=== PATIENT | male | born 1945 | race Caucasian/White ===

== ENCOUNTER 2017-09-27 11:54 | Inpatient (IN) | payer MEDICARE ==
--- NOTE | 2017-09-27 13:24 | C.PDOC ---
History Of Present Illness 72 y/o male presents to ED for evaluation of worsening open wound to left leg for 4 days with associated swelling and redness. Patient reports foul odor from wound with drainage prompting visit to ED. Patient denies fever, chills, nausea , vomiting or any other complaints at this time. Time Seen by Provider: 09/27/17 12:27 Chief Complaint (Nursing): Abnormal Skin Integrity History Per: Patient History/Exam Limitations: no limitations Onset/Duration Of Symptoms: Days Current Symptoms Are (Timing): Still Present Past Medical History Reviewed: Historical Data, Nursing Documentation, Vital Signs Vital Signs: Last Vital Signs Temp 97.6 F 09/27/17 16:30 Pulse 74 09/27/17 16:30 Resp 20 09/27/17 16:30 BP 133/76 09/27/17 16:30 Pulse Ox 98 09/27/17 17:11 - Medical History PMH: Arthritis, Fractures (left hip), HTN, Hypercholesterolemia Surgical History: No Surg Hx Family History: States: No Known Family Hx - Social History Hx Tobacco Use: No Hx Alcohol Use: Yes Hx Substance Use: No - Immunization History Hx Tetanus Toxoid Vaccination: Yes Hx Influenza Vaccination: Yes Hx Pneumococcal Vaccination: Yes Review Of Systems Except As Marked, All Systems Reviewed And Found Negative. Constitutional: Negative for: Fever, Chills Cardiovascular: Negative for: Chest Pain Respiratory: Negative for: Shortness of Breath Gastrointestinal: Negative for: Nausea, Vomiting Skin: Positive for: Other (oen wound). Negative for: Rash Physical Exam - Physical Exam Appears: Non-toxic, No Acute Distress Skin: Warm, Dry, Other (7x5cm open wound with erythema and purulent discharge. + eschar) Head: Atraumatic, Normacephalic Eye(s): bilateral: Normal Inspection, PERRL, EOMI Oral Mucosa: Moist Neck: Normal ROM, Supple Chest: Symmetrical, No Tenderness Cardiovascular: Rhythm Regular, No Friction Rub, No Murmur Respiratory: Normal Breath Sounds, No Rales, No Rhonchi, No Wheezing Gastrointestinal/Abdominal: Soft, No Tenderness, No Guarding, No Rebound Extremity: Tenderness (to left lower leg), Pedal Edema (bilateral), Capillary Refill (<2 seconds) Pulses: Left Dorsalis Pedis: Normal, Right Dorsalis Pedis: Normal Neurological/Psych: Oriented x3, Normal Speech, Normal Cognition, Normal Motor, Normal Sensation Gait: With Assistance (walker) ED Course And Treatment - Laboratory Results Result Diagrams: 09/27/17 13:39 09/27/17 13:39 O2 Sat by Pulse Oximetry: 98 (RA) Pulse Ox Interpretation: Normal Medical Decision Making Medical Decision Making: Cultures collected. The case was discussed with Dr. Gann who agrees to admit the patient to his service. Zosyn and Vanco ordered. Disposition - Disposition Disposition: HOSPITALIZED Disposition Time: 13:00 Condition: STABLE - Clinical Impression Clinical Impression: Wound infection, Cellulitis - PA / RANGE MECH[employer]IC / Resident Statement MD/DO has reviewed & agrees with the documentation as recorded. - Scribe Statement The provider has reviewed the documentation as recorded by the Arenibshashi Buenrostro All medical record entries made by the Arenibshashi were at my direction and personally dictated by me. I have reviewed the chart and agree that the record accurately reflects my personal performance of the history, physical exam, medical decision making, and the department course for this patient. I have also personally directed, reviewed, and agree with the discharge instructions and disposition.
[2017-09-27 13:51] LABS: BASO # 0.1 K/uL (0.0-0.2); BASO % 0.7 % (0.0-2.0); EOS # 0.1 K/uL (0.0-0.7); EOS % 0.9 % (0.0-4.0); HEMOGLOBIN 12.9 g/dL (12.0-18.0); LYMPH # 1.2 K/uL (1.0-4.3); LYMPH % 15.3 % (20.0-40.0); MEAN CELL VOLUME 88.3 fL (80.0-94.0); MEAN CORPUSCULAR HEMOGLOBIN 30.4 pg (27.0-31.0); MEAN CORPUSCULAR HGB CONC 34.5 g/dL (33.0-37.0); MEAN PLATELET VOLUME 7.8 fL (7.2-11.7); MONO # 0.6 K/uL (0.0-0.8); NEUT # 6.2 K/uL (1.8-7.0); NEUT % 76.1 % (50.0-75.0); RBC 4.25 Mil/uL (4.40-5.90); RED CELL DISTRIBUTION WIDTH 13.2 % (11.5-14.5); WHITE BLOOD COUNT 8.1 K/uL (4.8-10.8)
[2017-09-27 14:16] LABS: ALB/GLOB RATIO 1.1 (1.0-2.1); ALBUMIN 4.4 g/dL (3.5-5.0); ALT/SGPT 17 U/L (21-72); AST/SGOT 32 U/L (17-59); BLOOD UREA NITROGEN 16 mg/dL (9-20); CALCIUM 9.8 mg/dl (8.6-10.4); GFR AFRICAN-AMERICAN > 60; GFR NON-AFRICAN AMERICAN > 60
[2017-09-27] MEDS ORDERED: Piperacillin/Tazobact 3.375 gm 100 ML IV STA (14:25)
[2017-09-27] MEDS ORDERED: Vancomycin 1 GM 1 GM/250 ML BAG IV SCH (14:30)
--- NOTE | 2017-09-27 14:37 | CP.PCM.HP ---
<Mirtha Espinosa - Last Filed: 09/27/17 15:34> History of Present Illness - History of Present Illness History of Present Illness: HPI: 72 year old male with past medical history of cerebral palsy presented to hospital for left calf wound that started 4 days ago. Wound started draining a couple days ago accompanied with foul odor which prompted him to come to ED. Patient has been applying OTC ointment with no relief. Patient denies having any F/C, numbness/tingling in LE B/L, or pain in B/L LE. Patient denies having any recent insect bite or trauma to the area. Patient denies having any CP, SOB , abd pain, N/V/D/c, F/C. PMhx: stated above Sx: LE sx as a kid Social: denies tobacco, occasional ETOH use. Denies drug use Home Meds: MV Present on Admission - Present on Admission Any Indicators Present on Admission: No Review of Systems - Constitutional Constitutional: absent: Chills, Fever - EENT Eyes: absent: Change in Vision, Decreased Night Vision Nose/Mouth/Throat: Sore Throat. absent: Nasal Congestion, Nasal Discharge - Cardiovascular Cardiovascular: absent: Chest Pain, Dyspnea, Dyspnea on Exertion, Edema, Leg Edema, Pedal Edema, Syncope - Respiratory Respiratory: absent: Cough, Dyspnea, Dyspnea on Exertion, Wheezing, Chest Congestion - Gastrointestinal Gastrointestinal: absent: Abdominal Pain, Constipation, Diarrhea, Nausea, Vomiting - Genitourinary Genitourinary: absent: Dysuria, Urinary Frequency - Musculoskeletal Musculoskeletal: absent: Back Pain, Numbness, Tingling - Integumentary Integumentary: Skin Ulcer (left lower leg wound ). absent: Dry Skin, Sores - Neurological Neurological: absent: Dizziness, Focal Weakness, Headaches, Syncope, Tremor, Weakness - Psychiatric Psychiatric: absent: Anxiety, Depression Past Patient History - Infectious Disease Hx of Infectious Diseases: None - Past Social History Smoking Status: Never Smoked Chewing Tobacco Use: No Cigar Use: No Alcohol: None Home Situation {Lives}: Alone - CARDIAC Hx Hypercholesterolemia: Yes Hx Hypertension: Yes - MUSCULOSKELETAL/RHEUMATOLOGICAL Hx Arthritis: Yes Hx Fractures: Yes (left hip) - PSYCHIATRIC Hx Substance Use: No - SURGICAL HISTORY Hx Joint Replacement: Yes (hip sx uses walker) - ANESTHESIA Hx Anesthesia: Yes Hx Anesthesia Reactions: No Hx Malignant Hyperthermia: No Meds Allergies/Adverse Reactions: Allergies Allergy/AdvReac Type Severity Reaction Status Date / Time No Known Allergies Allergy Verified 09/27/17 12:00 Physical Exam - Constitutional Appears: Non-toxic, No Acute Distress - Head Exam Head Exam: ATRAUMATIC, NORMOCEPHALIC - ENT Exam ENT Exam: Mucous Membranes Moist - Respiratory Exam Respiratory Exam: Clear to Auscultation Bilateral, NORMAL BREATHING PATTERN. absent: Rales, Rhonchi - Cardiovascular Exam Cardiovascular Exam: REGULAR RHYTHM, RRR, +S1, +S2 - GI/Abdominal Exam GI & Abdominal Exam: Normal Bowel Sounds, Soft. absent: Distended, Firm, Guarding, Rigid - Extremities Exam Extremities exam: Positive for: normal inspection. Negative for: calf tenderness - Neurological Exam Neurological exam: Alert, Oriented x3 - Psychiatric Exam Psychiatric exam: Normal Affect, Normal Mood - Skin Additional comments: left lower leg calf wound with erythema on the calf. wound is draining serous fluid. Tender to palpation Results - Vital Signs Recent Vital Signs: Last Vital Signs Temp 98.5 F 09/27/17 13:42 Pulse 80 09/27/17 13:42 Resp 16 09/27/17 13:42 BP 110/69 09/27/17 13:42 Pulse Ox 98 09/27/17 13:38 - Labs Result Diagrams: 09/27/17 13:39 09/27/17 13:39 Labs: Laboratory Results - last 24 hr 09/27/17 09/27/17 13:39 13:39 WBC 8.1 RBC 4.25 L Hgb 12.9 Hct 37.5 MCV 88.3 MCH 30.4 MCHC 34.5 RDW 13.2 Plt Count 402 H D MPV 7.8 Neut % (Auto) 76.1 H Lymph % (Auto) 15.3 L [place] % (Auto) 7.0 Eos % (Auto) 0.9 Baso % (Auto) 0.7 Neut # (Auto) 6.2 Lymph # (Auto) 1.2 [place] # (Auto) 0.6 Eos # (Auto) 0.1 Baso # (Auto) 0.1 Sodium 145 Potassium 3.7 Chloride 104 Carbon Dioxide 29 Anion Gap 16 BUN 16 Creatinine 0.9 Est GFR ( Amer) > 60 Est GFR (Non-Af Amer) > 60 Random Glucose 104 Calcium 9.8 Total Bilirubin 0.6 AST 32 ALT 17 L Alkaline Phosphatase 127 H Total Protein 8.4 H Albumin 4.4 Globulin 4.0 H Albumin/Globulin Ratio 1.1 Assessment & Plan - Assessment and Plan (Free Text) Assessment: 72 year old male with past medical history of HTN and HLD is admitted for left calf cellulitis Left leg Cellulitis - Will check wound cultures and blood cultures - Pt started on vanco and cefepime - Tylenol prn for fever - Stable vital signs and normal WBC count on presentation - CT of left LE without contrast ordered - Wound care consult requested - ID, Dr. Willams is consulted - Podiatry, Dr. Hernandes is consulted Prophylaxis - Lovenox - No indication for GI prophylaxis Case will be discussed with attending, Dr. Gann - Date & Time Date: 09/27/17 Time: 14:42 <Pierce Gann - Last Filed: 09/27/17 16:02> Results - Vital Signs Recent Vital Signs: Last Vital Signs Temp 98.5 F 09/27/17 13:42 Pulse 80 09/27/17 13:42 Resp 16 09/27/17 13:42 BP 110/69 09/27/17 13:42 Pulse Ox 98 09/27/17 13:38 - Labs Result Diagrams: 09/27/17 13:39 09/27/17 13:39 Labs: Laboratory Results - last 24 hr 09/27/17 09/27/17 13:39 13:39 WBC 8.1 RBC 4.25 L Hgb 12.9 Hct 37.5 MCV 88.3 MCH 30.4 MCHC 34.5 RDW 13.2 Plt Count 402 H D MPV 7.8 Neut % (Auto) 76.1 H Lymph % (Auto) 15.3 L [place] % (Auto) 7.0 Eos % (Auto) 0.9 Baso % (Auto) 0.7 Neut # (Auto) 6.2 Lymph # (Auto) 1.2 [place] # (Auto) 0.6 Eos # (Auto) 0.1 Baso # (Auto) 0.1 Sodium 145 Potassium 3.7 Chloride 104 Carbon Dioxide 29 Anion Gap 16 BUN 16 Creatinine 0.9 Est GFR ( Amer) > 60 Est GFR (Non-Af Amer) > 60 Random Glucose 104 Calcium 9.8 Total Bilirubin 0.6 AST 32 ALT 17 L Alkaline Phosphatase 127 H Total Protein 8.4 H Albumin 4.4 Globulin 4.0 H Albumin/Globulin Ratio 1.1 Attending/Attestation - Attestation I have personally seen and examined this patient.: Yes I have fully participated in the care of the patient.: Yes I have reviewed all pertinent clinical information: Yes Notes (Text): 09/27/17 16:00 Medical attending: Patient was seen and examined by me. Agree with the above note by the resident. The patient was not in any acute distress when I saw him. The wound area is on the left calf near the ankle. It is a stage 2 wound that is weeping and is circular in area about 5 cm by 4 cm in dimentions. We cleaned the area off with saline as well as benadine and then saline again. It was then covered by 4 x 4s and kerlix wraps. Will need to get imaging of the lower extremity as well as podiatry and wound evaluation Because of the strong odor, very concerned for infection so will start vancomycin and cefepime thank you Pierce Gann
[2017-09-27] MEDS ORDERED: Piperacillin/Tazobact 3.375 GM in Sodium Chloride 100 ML IVPB STA (15:15)
[2017-09-27] MEDS ORDERED: Sodium Chloride 0.9% 1,000 ML ONE (15:29)
[2017-09-27] MEDS: Sodium Chloride 0.9% 1,000 ML IV SCH (15:30)
[2017-09-27] MEDS ORDERED: Vancomycin 1 gm/NS 200 ml 1 GM/200 ML BAG IVPB SCH (15:30)
[2017-09-27] MEDS ORDERED: Vancomycin 1 gm/NS 200 ml 1 GM/200 ML BAG IVPB STA (15:49)
[2017-09-27] MEDS ORDERED: Vancomycin 1 gm/NS 200 ml 1 GM/200 ML BAG IVPB ONE (16:00)
--- NOTE | 2017-09-27 17:10 | CT ---
PROCEDURE: CT of the left lower extremity dated 09/27/2017 COMPARISON: No prior study available for comparison HISTORY: Left lower leg cellulitis, rule out osteomyelitis TECHNIQUE: Contiguous helical/transaxial sections of the left lower extremity performed from just above the knee joint to the proximal margins of the distal phalanges of the foot. . Coronal and sagittal reformats were generated. This CT exam was performed using one or more of the following dose reduction techniques: Automated exposure control, adjustment of the mA and/or kV according to patient size, and/or use of iterative reconstruction technique. . Radiation dose: Total DLP = 610.90 mGy -cm FINDINGS: BONES: Diffuse infiltration changes of the subcutaneous tissues involving the distal 2/3 of the left lower extremity the consistent with this patient's history of a diffuse cellulitis. There also appears to be localized skin thickening from just above the level of the ankle extending distally to the proximal midfoot region. . No definitive drainable fluid collections are identified. . No evidence of subcutaneous emphysema. No obvious cortical destructive changes. Vascular calcifications are present. IMPRESSION: Findings consistent with diffuse cellulitis involving the distal 2/3 of the left lower extremity as above. There is mild skin thickening from just above the level of the ankle joint distally into the proximal midfoot region. No evidence of drainable fluid collections or subcutaneous emphysema. .No obvious cortical destructive changes suggest overt osteomyelitis however the possibility of an early osteomyelitis cannot be excluded. Followup on three-phase bone scan or MRI could be obtained for further evaluation to exclude early osteomyelitis.
--- NOTE | 2017-09-27 17:14 | CP.PCM.CON ---
History of Present Illness - History of Present Illness History of Present Illness: 72 yo male with complex Hx admitted with SSTI Left calf IV rx started empirically cultures taken Review of Systems - Review of Systems All systems: reviewed and no additional remarkable complaints except - Constitutional Constitutional: As Per HPI - EENT Eyes: absent: As Per HPI, Blind Spots, Blurred Vision, Change in Vision, Decreased Night Vision, Diplopia, Discharge, Dry Eye, Exophthalmos, Floaters, Irritation, Itchy Eyes, Loss of Peripheral Vision, Pain, Photophobia, Requires Corrective Lenses, Sees Flashes, Spots in Vision, Tunnel Vision, Other Visual Disturbances, Loss of Vision, Other Ears: absent: As Per HPI, Decreased Hearing, Ear Discharge, Ear Pain, Tinnitus, Abnormal Hearing, Disequilibrium, Dizziness, Other Nose/Mouth/Throat: absent: As Per HPI, Epistaxis, Nasal Congestion, Nasal Discharge, Nasal Obstruction, Nasal Trauma, Nose Pain, Post Nasal Drip, Sinus Pain, Sinus Pressure, Bleeding Gums, Change in Voice, Dental Pain, Dry Mouth, Dysphagia, Halitosis, Hoarsness, Lip Swelling, Mouth Lesions, Mouth Pain, Odynophagia, Sore Throat, Throat Swelling, Tongue Swelling, Facial Pain, Neck Pain, Neck Mass, Other - Cardiovascular Cardiovascular: absent: As Per HPI, Acrocyanosis, Chest Pain, Chest Pain at Rest , Chest Pain with Activity, Claudication, Diaphoresis, Dyspnea, Dyspnea on Exertion, Edema, Irregular Heart Rhythm, Pain Radiating to Arm/Neck/Jaw, Leg Edema, Leg Ulcers, Lightheadedness, Orthopnea, Palpitations, Paroxysmal Nocturnal Dyspnea, Pedal Edema, Radiating Pain, Rapid Heart Rate, Slow Heart Rate, Syncope, Other - Respiratory Respiratory: absent: As Per HPI, Cough, Dyspnea, Hemoptysis, Dyspnea on Exertion , Wheezing, Snoring, Stridor, Pain on Inspiration, Chest Congestion, Excessive Mucous Production, Change in Mucous Color, Pain with Coughing, Other - Gastrointestinal Gastrointestinal: absent: As Per HPI, Abdominal Pain, Belching, Bloating, Change in Bowel Habits, Change in Stool Character, Coffee Ground Emesis, Constipation, Cramping, Diarrhea, Dyspepsia, Dysphagia, Early Satiety, Excessive Flatus, Fecal Incontinence, Heartburn, Hematemesis, Hematochezia, Loose Stools, Melena, Nausea, Odynophagia, Temesmus, Vomiting, Other - Genitourinary Genitourinary: absent: As Per HPI, Change in Urinary Stream, Difficulty Urinating, Dysuria, Flank Pain, Hematuria, Pyuria, Nocturia, Urinary Incontinence, Urinary Frequency, Urinary Hesitance, Urinary Urgency, Voiding Freq/Small Amts, Freq UTI, Hx Renal/Bladder Calculi, Hx /Renal Surgery, Bladder Distension, Other - Reproductive: Male Reproductive:Male: As Per HPI, Prepubesant, Dyspareunia, Genital Lesions, Genital Pruritis, Pelvic Pain, Sexual Dysfunction, Penile Discharge, Genital Odor, Impotence, On ED Medications, Penile Implant, Other - Musculoskeletal Musculoskeletal: As Per HPI - Integumentary Integumentary: As Per HPI - Neurological Neurological: As Per HPI - Psychiatric Psychiatric: absent: As Per HPI, Abnormal Sleep Pattern, Anhedonia, Anxiety, Auditory Hallucinations, Behavioral Changes, Change in Appetite, Change in Libido, Confusion, Depression, Difficulty Concentrating, Hallucinations, Homicidal Ideation, Hopelessness, Irritability, Memory Loss, Mood Swings, Panic Attacks, Paranoia, Suicidal Ideation, Visual Hallucinations, Tactile Hallucinations, Other - Endocrine Endocrine: absent: As Per HPI, Change in Body Appearance, Change in Libido, Cold Intolorance, Deepening of Voice, Excessive Sweating, Fatigue, Flushing, Heat Intolorance, Increase in Ring/Shoe/Hat Size, Palpitations, Polydipsia, Polyphagia, Polyuria, Other - Hematologic/Lymphatic Hematologic: absent: As Per HPI, Easy Bleeding, Easy Bruising, Lymphadenopathy, Other Past Patient History - Infectious Disease Hx of Infectious Diseases: None - Past Social History Smoking Status: Never Smoked Chewing Tobacco Use: No Cigar Use: No Alcohol: None Home Situation {Lives}: Alone - CARDIAC Hx Hypercholesterolemia: Yes Hx Hypertension: Yes - MUSCULOSKELETAL/RHEUMATOLOGICAL Hx Arthritis: Yes Hx Fractures: Yes (left hip) - PSYCHIATRIC Hx Substance Use: No - SURGICAL HISTORY Hx Joint Replacement: Yes (hip sx uses walker) - ANESTHESIA Hx Anesthesia: Yes Hx Anesthesia Reactions: No Hx Malignant Hyperthermia: No Has any member of the family had a problem w/ anesthesia?: No Meds Allergies/Adverse Reactions: Allergies Allergy/AdvReac Type Severity Reaction Status Date / Time No Known Allergies Allergy Verified 09/27/17 12:00 - Medications Medications: Current Medications Acetaminophen (Tylenol 325mg Tab) 650 mg PO Q6 PRN PRN Reason: Fever >100.4 F Sodium Chloride (Sodium Chloride 0.9%) 1,000 mls @ 100 mls/hr IV .Q10H YUSRA Last Admin: 09/27/17 15:30 Dose: 100 mls/hr Cefepime HCl (Maxipime Iv 1 Gm Premix) 1 gm in 50 mls @ 100 mls/hr IVPB Q12H YUSRA PRN Reason: Protocol Vancomycin/Sodium Chloride (Vancomycin 1 Gm/Ns 200 Ml) 1 gm in 200 mls @ 133.333 mls/hr IVPB Q24H YUSRA PRN Reason: Protocol Stop: 10/03/17 16:01 Vancomycin/Sodium Chloride (Vancomycin 1 Gm/Ns 200 Ml) 1 gm in 200 mls @ 133 mls/hr IVPB STAT STA PRN Reason: Protocol Stop: 09/27/17 17:19 Last Admin: 09/27/17 16:12 Dose: Not Given Physical Exam - Constitutional Appears: Non-toxic, Chronically Ill - Head Exam Head Exam: NORMOCEPHALIC - Eye Exam Eye Exam: PERRL - ENT Exam ENT Exam: Mucous Membranes Dry, Normal External Ear Exam - Neck Exam Neck exam: Negative for: Lymphadenopathy - Respiratory Exam Respiratory Exam: Decreased Breath Sounds, Clear to Auscultation Bilateral - Cardiovascular Exam Cardiovascular Exam: REGULAR RHYTHM, +S1, +S2 - GI/Abdominal Exam GI & Abdominal Exam: Diminished Bowel Sounds, Soft. absent: Tenderness - Rectal Exam Rectal Exam: Deferred, NORMAL INSPECTION - Exam Exam: NORMAL INSPECTION - Extremities Exam Extremities exam: Positive for: calf tenderness, pedal edema, tenderness, pedal pulses present - Back Exam Back exam: absent: CVA tenderness (L) - Neurological Exam Neurological exam: Alert, CN II-XII Intact, Oriented x3, Reflexes Normal - Psychiatric Exam Psychiatric exam: Depressed - Skin Skin Exam: Dry Results - Vital Signs Recent Vital Signs: Last Vital Signs Temp 97.6 F 09/27/17 16:30 Pulse 74 09/27/17 16:30 Resp 20 09/27/17 16:30 BP 133/76 09/27/17 16:30 Pulse Ox 99 09/27/17 16:30 - Labs Result Diagrams: 09/27/17 13:39 09/27/17 13:39 Labs: Laboratory Results - last 24 hr 09/27/17 09/27/17 13:39 13:39 WBC 8.1 RBC 4.25 L Hgb 12.9 Hct 37.5 MCV 88.3 MCH 30.4 MCHC 34.5 RDW 13.2 Plt Count 402 H D MPV 7.8 Neut % (Auto) 76.1 H Lymph % (Auto) 15.3 L [place] % (Auto) 7.0 Eos % (Auto) 0.9 Baso % (Auto) 0.7 Neut # (Auto) 6.2 Lymph # (Auto) 1.2 [place] # (Auto) 0.6 Eos # (Auto) 0.1 Baso # (Auto) 0.1 Sodium 145 Potassium 3.7 Chloride 104 Carbon Dioxide 29 Anion Gap 16 BUN 16 Creatinine 0.9 Est GFR ( Amer) > 60 Est GFR (Non-Af Amer) > 60 Random Glucose 104 Calcium 9.8 Total Bilirubin 0.6 AST 32 ALT 17 L Alkaline Phosphatase 127 H Total Protein 8.4 H Albumin 4.4 Globulin 4.0 H Albumin/Globulin Ratio 1.1 Assessment & Plan - Assessment and Plan (Free Text) Assessment: cellulitis left calf/ SSTI wound care, debridement cultures sent IV antibiotics started
[2017-09-27] MEDS: Cefepime IV 1 gm in Dextrose 1 GM/50 ML BAG IVPB SCH (18:10)
--- NOTE | 2017-09-27 22:17 | CP.PCM.CON ---
History of Present Illness - History of Present Illness History of Present Illness: Podiatry Consult Note - Dr. Hernandes 72 year old male seen at bedside for initial evaluation of left lower leg wound. Pt reports this is his initial presentation with a wound in this area. Wound developed 4 days ago accompanied with foul odor which prompted him to seek medical attention. Pt denies and notable inciting event, no bite, scratching, abrasion, or trauma to the area. Pt states he is ambulatory with the aid of a rolling walker. Pt denies and pedal pain a this time. He denies having any F/C, numbness/tingling in LE B/L, CP, SOB, N,V,D. PMH: cerebral palsy Sx: Left leg surgery as a kid All: NKDA Social: Homed. Denies tobacco, occasional ETOH use. Denies drug use Review of Systems - Review of Systems All systems: reviewed and no additional remarkable complaints except - Musculoskeletal Musculoskeletal: Stiffness Past Patient History - Infectious Disease Hx of Infectious Diseases: None - Past Social History Smoking Status: Never Smoked Chewing Tobacco Use: No Cigar Use: No Alcohol: None Home Situation {Lives}: Alone - CARDIAC Hx Hypercholesterolemia: Yes Hx Hypertension: Yes - MUSCULOSKELETAL/RHEUMATOLOGICAL Hx Arthritis: Yes Hx Fractures: Yes (left hip) - PSYCHIATRIC Hx Substance Use: No - SURGICAL HISTORY Hx Joint Replacement: Yes (hip sx uses walker) - ANESTHESIA Hx Anesthesia: Yes Hx Anesthesia Reactions: No Hx Malignant Hyperthermia: No Has any member of the family had a problem w/ anesthesia?: No Meds Allergies/Adverse Reactions: Allergies Allergy/AdvReac Type Severity Reaction Status Date / Time No Known Allergies Allergy Verified 09/27/17 12:00 - Medications Medications: Current Medications Acetaminophen (Tylenol 325mg Tab) 650 mg PO Q6 PRN PRN Reason: Fever >100.4 F Sodium Chloride (Sodium Chloride 0.9%) 1,000 mls @ 100 mls/hr IV .Q10H [facility] Last Admin: 09/27/17 15:30 Dose: 100 mls/hr Cefepime HCl (Maxipime Iv 1 Gm Premix) 1 gm in 50 mls @ 100 mls/hr IVPB Q12H [facility] PRN Reason: Protocol Last Admin: 09/27/17 18:10 Dose: 100 mls/hr Vancomycin/Sodium Chloride (Vancomycin 1 Gm/Ns 200 Ml) 1 gm in 200 mls @ 133.333 mls/hr IVPB Q24H [facility] PRN Reason: Protocol Stop: 10/03/17 16:01 Physical Exam - Constitutional Appears: Well, Non-toxic, No Acute Distress - Extremities Exam Additional comments: Left lower extremity focused. VASC: DP pedal pulse graded 2/4, Pt pulse graded 1/4. Non-pitting edema noted to distal 1/3 of lower leg. +1 pitting edema noted bilaterally extending from foot to level inferior to knee along. Mild localized callor. Capillary refill time to all digits was <3 seconds. NEURO: Protective sensation grossly intact. Negative Babinski bilaterally. DERM: Left posterior leg partial thickness ulceration noted along course of Achilles tendon. Ulcer measures 6.6 x 3 cm with [id number] wound base. No raised margins no undermining not tunnelling noted. No mal-odor noted a tthis time. Darline wound streaking erythema noted extending 3 cm past wound margins. No active purulence or active drainage noted. Nails are elongated, yellowed, and thickened. MUSCK: Pedal muscle strength graded as 5/5 to right side and 4/5 to left side on inversion and eversion resistance. Stiff and limited ankle joint range of motion to dorsiflexion and plantar flexion. Non-fluid movement of bilateral hip extension, and knee extension. No tenderness to palpation noted. - Neurological Exam Neurological exam: Alert, Oriented x3 - Psychiatric Exam Psychiatric exam: Normal Affect, Normal Mood Results - Vital Signs Recent Vital Signs: Last Vital Signs Temp 97.6 F 09/27/17 16:30 Pulse 74 09/27/17 16:30 Resp 20 09/27/17 16:30 BP 133/76 09/27/17 16:30 Pulse Ox 98 09/27/17 18:41 - Labs Result Diagrams: 09/28/17 08:29 09/28/17 08:29 Labs: Laboratory Results - last 24 hr 09/27/17 09/27/17 13:39 13:39 WBC 8.1 RBC 4.25 L Hgb 12.9 Hct 37.5 MCV 88.3 MCH 30.4 MCHC 34.5 RDW 13.2 Plt Count 402 H D MPV 7.8 Neut % (Auto) 76.1 H Lymph % (Auto) 15.3 L [place] % (Auto) 7.0 Eos % (Auto) 0.9 Baso % (Auto) 0.7 Neut # (Auto) 6.2 Lymph # (Auto) 1.2 [place] # (Auto) 0.6 Eos # (Auto) 0.1 Baso # (Auto) 0.1 Sodium 145 Potassium 3.7 Chloride 104 Carbon Dioxide 29 Anion Gap 16 BUN 16 Creatinine 0.9 Est GFR ( Amer) > 60 Est GFR (Non-Af Amer) > 60 Random Glucose 104 Calcium 9.8 Total Bilirubin 0.6 AST 32 ALT 17 L Alkaline Phosphatase 127 H Total Protein 8.4 H Albumin 4.4 Globulin 4.0 H Albumin/Globulin Ratio 1.1 Assessment & Plan - Assessment and Plan (Free Text) Assessment: 72 year old male with left posterior leg ulcer and cellulits Plan: Pt seen and evaluated. Discussed in detail with attending, Dr. Hernandes. Chart, labs, and vitals reviewed. Afebrile, absent leukocytosis. Leg wound cultures- pending. Leg CT scan- pending. IV abx per ID recommendations.-> Continue empirical abx coverage. Podiatry Intervention: Local wound care. Cleansed Site with saline. Dressed with betadine wet-to-dry dressing and DSD. -Santyl ordered. Offloading of left leg indicated. Prevlon boot ordered. to be applied. Podiatry will continue to monitor pt while inhouse. - Date & Time Date: 09/28/17 Time: 17:15
[2017-09-28] MEDS: Sodium Chloride 0.9% 1,000 ML IV SCH ×5 (03:15→22:53)
[2017-09-28] MEDS: Cefepime IV 1 gm in Dextrose 1 GM/50 ML BAG IVPB SCH ×2 (05:32→17:55)
--- NOTE | 2017-09-28 07:48 | CP.PCM.PN ---
<Geovanna Hawkins - Last Filed: 09/28/17 10:34> Subjective - Date & Time of Evaluation Date of Evaluation: 09/28/17 Time of Evaluation: 07:00 - Subjective Subjective: Medicine Progress Note: Patient was seen and examined at bedside in the AM. Patient states the pain in his lower extremity feels like a tingling/burning sensation and states his leg feels warm. He states it feels like when you burn yourself on a hot toth. Patient states he has been walking with the walker. Patient denies nausea, vomiting, fever or chills. Objective - Vital Signs/Intake and Output Vital Signs (last 24 hours): Temp Pulse Resp BP Pulse Ox 98.5 F 80 20 121/76 96 09/28/17 07:35 09/28/17 07:35 09/28/17 07:35 09/28/17 07:35 09/28/17 07:35 Intake and Output: 09/28/17 09/28/17 06:59 18:59 Intake Total 100 Balance 100 - Medications Medications: Current Medications Acetaminophen (Tylenol 325mg Tab) 650 mg PO Q6 PRN PRN Reason: Fever >100.4 F Collagenase (Santyl) 0 gm TOP DAILY [facility] Enoxaparin Sodium (Lovenox) 30 mg SC DAILY [facility] Sodium Chloride (Sodium Chloride 0.9%) 1,000 mls @ 100 mls/hr IV .Q10H [facility] Last Admin: 09/28/17 05:32 Dose: 100 mls/hr Cefepime HCl (Maxipime Iv 1 Gm Premix) 1 gm in 50 mls @ 100 mls/hr IVPB Q12H [facility] PRN Reason: Protocol Last Admin: 09/28/17 05:32 Dose: 100 mls/hr Vancomycin/Sodium Chloride (Vancomycin 1 Gm/Ns 200 Ml) 1 gm in 200 mls @ 133.333 mls/hr IVPB Q24H [facility] PRN Reason: Protocol Stop: 10/03/17 16:01 - Labs Labs: 09/27/17 13:39 09/27/17 13:39 - Constitutional Appears: No Acute Distress - Head Exam Head Exam: ATRAUMATIC, NORMAL INSPECTION - Eye Exam Eye Exam: EOMI, Normal appearance, PERRL Pupil Exam: NORMAL ACCOMODATION - ENT Exam ENT Exam: Mucous Membranes Moist - Respiratory Exam Respiratory Exam: Clear to Ausculation Bilateral, NORMAL BREATHING PATTERN - Cardiovascular Exam Cardiovascular Exam: REGULAR RHYTHM, +S1, +S2 - GI/Abdominal Exam GI & Abdominal Exam: Soft, Normal Bowel Sounds. absent: Tenderness - Extremities Exam Additional comments: Left posterior Lower extremity 2nd stage ulcer - dressing - clean/dry/intact - Neurological Exam Neurological Exam: Alert, Awake, Oriented x3 - Psychiatric Exam Psychiatric exam: Normal Affect, Normal Mood - Skin Skin Exam: Dry, Intact, Warm Assessment and Plan - Assessment and Plan (Free Text) Assessment: 72 year old male with past medical history of HTN and HLD is admitted for left calf cellulitis Left leg Cellulitis - Stable vital signs and normal WBC count on presentation - ID Consult: Dr. Willams --> help appreciated - Podiatry Consult: Dr. Hernandes --> help appreciated - Wound care consult --> help appreciated - f/u wound cultures: rare polymorphonuclear WBCs; rare gram positive cocci - f/u blood cultures - Medications: * Vanco 1gm q24h IV started 09/28/17 * Cefepime 1gm q12h IV started 09/28/17 * Tylenol prn for fever * Toradol 15mg q6 prn for pain - CT of left LE without contrast (09/27/17): Findings consistent with diffuse cellulitis involving the distal 2/3 of the left lower extremity as above. There is mild skin thickening from just above the level of the ankle joint distally into the proximal midfoot region. No evidence of drainable fluid collections or subcutaneous emphysema. .No obvious cortical destructive changes suggest overt osteomyelitis however the possibility of an early osteomyelitis cannot be excluded. Followup on three-phase bone scan or MRI could be obtained for further evaluation to exclude early osteomyelitis. Prophylaxis - Lovenox 30mg SC daily - No indication for GI prophylaxis - SCDs contraindication Case discussed with Dr. Sanjuanita Hawkins PGY-1 <Pierce Gann - Last Filed: 09/28/17 14:51> Objective - Vital Signs/Intake and Output Vital Signs (last 24 hours): Temp Pulse Resp BP Pulse Ox 98.5 F 80 20 121/76 96 09/28/17 07:35 09/28/17 07:35 09/28/17 07:35 09/28/17 07:35 09/28/17 07:35 Intake and Output: 09/28/17 09/28/17 06:59 18:59 Intake Total 100 1000 Balance 100 1000 - Medications Medications: Current Medications Acetaminophen (Tylenol 325mg Tab) 650 mg PO Q6 PRN PRN Reason: Fever >100.4 F Enoxaparin Sodium (Lovenox) 30 mg SC DAILY [facility] Last Admin: 09/28/17 09:47 Dose: 30 mg Sodium Chloride (Sodium Chloride 0.9%) 1,000 mls @ 100 mls/hr IV .Q10H [facility] Last Admin: 09/28/17 11:23 Dose: Not Given Cefepime HCl (Maxipime Iv 1 Gm Premix) 1 gm in 50 mls @ 100 mls/hr IVPB Q12H [facility] PRN Reason: Protocol Last Admin: 09/28/17 05:32 Dose: 100 mls/hr Vancomycin/Sodium Chloride (Vancomycin 1 Gm/Ns 200 Ml) 1 gm in 200 mls @ 133.333 mls/hr IVPB Q24H [facility] PRN Reason: Protocol Stop: 10/03/17 16:01 Ketorolac Tromethamine (Toradol) 15 mg IVP Q6 PRN PRN Reason: Pain, moderate (4-7) Last Admin: 09/28/17 10:35 Dose: 15 mg Sodium Hypochlorite (Dakins Solution 0.125%) 1 appl TOP DAILY [facility] - Labs Labs: 09/28/17 08:29 09/28/17 08:29 PT 12.9 SECONDS (9.7-12.2) H 09/28/17 14:01 INR 1.2 09/28/17 14:01 APTT 36 SECONDS (21-34) H 09/28/17 14:01 Attending/Attestation - Attestation I have personally seen and examined this patient.: Yes I have fully participated in the care of the patient.: Yes I have reviewed all pertinent clinical information, including history, physical exam and plan: Yes Notes (Text): 09/28/17 14:45 Medical attending: Patient was seen and examined by me. Agree with the above note by the resident The patient was not in any acute distress when we saw him. His dressing over the lower left foot and ankle had been changed this morning. The patient reported there was some pain on exam He underwent CT of the lower extremity, he does have cellulitis as well as soft tissue swelling. The report did not suggest osteomylitis. He will be undergoing surgery with podiatry soon thank you Pierce Gann
[2017-09-28 08:43] LABS: BASO # 0.1 K/uL (0.0-0.2); BASO % 0.7 % (0.0-2.0); EOS # 0.2 K/uL (0.0-0.7); EOS % 3.2 % (0.0-4.0); HEMOGLOBIN 11.5 g/dL (12.0-18.0); LYMPH # 1.4 K/uL (1.0-4.3); LYMPH % 20.3 % (20.0-40.0); MEAN CELL VOLUME 87.9 fL (80.0-94.0); MEAN CORPUSCULAR HGB CONC 34.2 g/dL (33.0-37.0); MONO # 0.8 K/uL (0.0-0.8); MONO % 10.8 % (0.0-10.0); NEUT # 4.6 K/uL (1.8-7.0); RBC 3.81 Mil/uL (4.40-5.90); RED CELL DISTRIBUTION WIDTH 13.1 % (11.5-14.5); WHITE BLOOD COUNT 7.1 K/uL (4.8-10.8)
[2017-09-28 09:21] LABS: ALBUMIN 3.3 g/dL (3.5-5.0); ALT/SGPT 18 U/L (21-72); AST/SGOT 20 U/L (17-59); BLOOD UREA NITROGEN 16 mg/dL (9-20); GFR AFRICAN-AMERICAN > 60; GFR NON-AFRICAN AMERICAN > 60
[2017-09-28 09:32] LABS: HEPATITIS B SURFACE AG Negative (NEGATIVE)
[2017-09-28 09:37] LABS: HEPATITIS A IGM NEGATIVE (NEGATIVE)
[2017-09-28 09:39] LABS: HEPATITIS B CORE AB NEGATIVE (NEGATIVE)
[2017-09-28] MEDS: Enoxaparin 30 mg Syringe SC SCH (09:47)
[2017-09-28 09:49] LABS: HEPATITIS C ANTIBODY NEGATIVE (NEGATIVE)
[2017-09-28] MEDS ORDERED: Collagenase 250 Units/gm Ointment(30 gm) TOP SCH ×2 (10:00→11:00)
--- NOTE | 2017-09-28 14:15 | CP.PCM.PN ---
Subjective - Date & Time of Evaluation Date of Evaluation: 09/28/17 Time of Evaluation: 09:50 - Subjective Subjective: Podiatry Progress Note - Dr. Hernandes 72 year old male seen at bedside for left lower leg wound. Pt denies any pedal pain a this time. He denies any acute overnight events. He denies overnight n/v/ f/c/cp/sob/d. Objective - Vital Signs/Intake and Output Vital Signs (last 24 hours): Temp Pulse Resp BP Pulse Ox 98.5 F 80 20 121/76 96 09/28/17 07:35 09/28/17 07:35 09/28/17 07:35 09/28/17 07:35 09/28/17 07:35 Intake and Output: 09/28/17 09/28/17 06:59 18:59 Intake Total 100 1000 Balance 100 1000 - Medications Medications: Current Medications Acetaminophen (Tylenol 325mg Tab) 650 mg PO Q6 PRN PRN Reason: Fever >100.4 F Enoxaparin Sodium (Lovenox) 30 mg SC DAILY [facility] Last Admin: 09/28/17 09:47 Dose: 30 mg Sodium Chloride (Sodium Chloride 0.9%) 1,000 mls @ 100 mls/hr IV .Q10H [facility] Last Admin: 09/28/17 11:23 Dose: Not Given Cefepime HCl (Maxipime Iv 1 Gm Premix) 1 gm in 50 mls @ 100 mls/hr IVPB Q12H [facility] PRN Reason: Protocol Last Admin: 09/28/17 05:32 Dose: 100 mls/hr Vancomycin/Sodium Chloride (Vancomycin 1 Gm/Ns 200 Ml) 1 gm in 200 mls @ 133.333 mls/hr IVPB Q24H [facility] PRN Reason: Protocol Stop: 10/03/17 16:01 Ketorolac Tromethamine (Toradol) 15 mg IVP Q6 PRN PRN Reason: Pain, moderate (4-7) Last Admin: 09/28/17 10:35 Dose: 15 mg - Labs Labs: 09/28/17 08:29 09/28/17 08:29 - Constitutional Appears: Well, Non-toxic, No Acute Distress - Extremities Exam Additional comments: Left lower extremity focused. VASC: DP pedal pulse graded 2/4, PT pulse graded 1/4. Non-pitting edema noted to distal 1/3 of lower leg. +1 pitting edema noted bilaterally extending from foot to level inferior to knee along. Mild localized callor. Capillary refill time to all digits was <3 seconds. NEURO: Protective sensation grossly intact. Negative Babinski bilaterally. DERM: Left posterior leg partial thickness ulceration noted along course of Achilles tendon. Ulcer measures 6.6 x 3 cm with [id number] wound base. No raised margins no undermining not tunnelling noted. Mal-odor noted a this time. Darline-wound streaking erythema noted extending 3 cm past wound margins. No active purulence or active drainage noted. Nails are elongated, yellowed, and thickened. MUSCK: Pedal muscle strength graded as 5/5 to right side and 4/5 to left side on inversion and eversion resistance. Stiff and limited ankle joint range of motion to dorsiflexion and plantar flexion. Non-fluid movement of bilateral hip extension, and knee extension. No tenderness to palpation noted. - Neurological Exam Neurological Exam: Alert, Awake, Oriented x3 - Psychiatric Exam Psychiatric exam: Normal Affect, Normal Mood Assessment and Plan - Assessment and Plan (Free Text) Assessment: 72 year old male with left posterior leg ulcer and cellulits Plan: Pt seen and evaluated with attending, Dr. Hernandes. Chart, labs, and vitals reviewed. Afebrile, absent leukocytosis. Leg wound cultures- pending. Leg CT scan- positive for cellulits swelling to distal 2/3 of leg, absent noted OM, No noted abscess. IV abx per ID recommendations.-Vanco & Cefepime Podiatry Intervention: Surgical wound debridement indicated. Pt scheduled for debridement tomorrow Monday09/29/17 @ 8am. -Medical clearance requested -Pt placed NPO at midnight. -Anticoagulants held. Continue local wound care. Cleansed Site with saline. Dressed with betadine wet- to-dry dressing and DSD. -Santyl cancelled. Ordered 1/4 strength Dakin's solution. Offloading of left leg indicated. Prevlon boot applied. Podiatry will continue to monitor pt while inhouse.
--- NOTE | 2017-09-28 14:28 | RAD ---
HISTORY: medical clearance COMPARISON: 02/28/2012 FINDINGS: LUNGS: No active pulmonary disease. PLEURA: No significant pleural effusion identified, no pneumothorax apparent. CARDIOVASCULAR: Normal. OSSEOUS STRUCTURES: Current study suggests leftward thoracic convexity. VISUALIZED UPPER ABDOMEN: Normal. OTHER FINDINGS: None. IMPRESSION: No cardiopulmonary active disease.
[2017-09-28 14:29] LABS: INR 1.2; PROTHROMBIN TIME 12.9 SECONDS (9.7-12.2)
[2017-09-28] MEDS: Vancomycin 1 gm/NS 200 ml 1 GM/200 ML BAG IVPB SCH (16:13)
--- NOTE | 2017-09-28 19:10 | CP.PCM.PN ---
Subjective - Date & Time of Evaluation Date of Evaluation: 09/28/17 Time of Evaluation: 10:00 - Subjective Subjective: seen on ronds denies fever + pain LLE Objective - Vital Signs/Intake and Output Vital Signs (last 24 hours): Temp Pulse Resp BP Pulse Ox 97.7 F 66 20 95/58 L 96 09/28/17 16:00 09/28/17 16:00 09/28/17 16:00 09/28/17 16:00 09/28/17 16:00 Intake and Output: 09/28/17 09/29/17 18:59 06:59 Intake Total 1360 Balance 1360 - Medications Medications: Current Medications Acetaminophen (Tylenol 325mg Tab) 650 mg PO Q6 PRN PRN Reason: Fever >100.4 F Last Admin: 09/28/17 16:45 Dose: 650 mg Enoxaparin Sodium (Lovenox) 30 mg SC DAILY [facility] Last Admin: 09/28/17 09:47 Dose: 30 mg Sodium Chloride (Sodium Chloride 0.9%) 1,000 mls @ 100 mls/hr IV .Q10H [facility] Last Admin: 09/28/17 11:23 Dose: Not Given Cefepime HCl (Maxipime Iv 1 Gm Premix) 1 gm in 50 mls @ 100 mls/hr IVPB Q12H [facility] PRN Reason: Protocol Last Admin: 09/28/17 17:55 Dose: 100 mls/hr Vancomycin/Sodium Chloride (Vancomycin 1 Gm/Ns 200 Ml) 1 gm in 200 mls @ 133.333 mls/hr IVPB Q24H [facility] PRN Reason: Protocol Stop: 10/03/17 16:01 Last Admin: 09/28/17 16:13 Dose: 133.333 mls/hr Ketorolac Tromethamine (Toradol) 15 mg IVP Q6 PRN PRN Reason: Pain, moderate (4-7) Last Admin: 09/28/17 10:35 Dose: 15 mg Sodium Hypochlorite (Dakins Solution 0.125%) 1 appl TOP DAILY [facility] - Labs Labs: 09/28/17 08:29 09/28/17 08:29 PT 12.9 SECONDS (9.7-12.2) H 09/28/17 14:01 INR 1.2 09/28/17 14:01 APTT 36 SECONDS (21-34) H 09/28/17 14:01 - Constitutional Appears: Non-toxic, Chronically Ill - Head Exam Head Exam: NORMOCEPHALIC - Eye Exam Eye Exam: PERRL - ENT Exam ENT Exam: Mucous Membranes Dry - Neck Exam Neck Exam: absent: Lymphadenopathy - Respiratory Exam Respiratory Exam: Decreased Breath Sounds - Cardiovascular Exam Cardiovascular Exam: REGULAR RHYTHM - GI/Abdominal Exam GI & Abdominal Exam: Distended - Rectal Exam Rectal Exam: Deferred - Exam Exam: NORMAL INSPECTION - Extremities Exam Extremities Exam: Pedal Edema Additional comments: Left lower extremity focused. VASC: DP pedal pulse graded 2/4, PT pulse graded 1/4. Non-pitting edema noted to distal 1/3 of lower leg. +1 pitting edema noted bilaterally extending from foot to level inferior to knee along. Mild localized callor. Capillary refill time to all digits was <3 seconds. NEURO: Protective sensation grossly intact. Negative Babinski bilaterally. DERM: Left posterior leg partial thickness ulceration noted along course of Achilles tendon. Ulcer measures 6.6 x 3 cm with [id number] wound base. No raised margins no undermining not tunnelling noted. Mal-odor noted a this time. Darline-wound streaking erythema noted extending 3 cm past wound margins. No active purulence or active drainage noted. Nails are elongated, yellowed, and thickened. MUSCK: Pedal muscle strength graded as 5/5 to right side and 4/5 to left side on inversion and eversion resistance. Stiff and limited ankle joint range of motion to dorsiflexion and plantar flexion. Non-fluid movement of bilateral hip extension, and knee extension. No tenderness to palpation noted. - Back Exam Back Exam: absent: CVA tenderness (L), CVA tenderness (R) - Neurological Exam Neurological Exam: Alert, Awake, Oriented x3 - Psychiatric Exam Psychiatric exam: Normal Mood - Skin Skin Exam: Dry Assessment and Plan (1) Cellulitis Status: Acute (2) Wound infection Status: Acute - Assessment and Plan (Free Text) Assessment: for OR / debridement in AM cont IV antibiotics
[2017-09-29] MEDS: Cefepime IV 1 gm in Dextrose 1 GM/50 ML BAG IVPB SCH ×2 (05:17→17:59)
[2017-09-29 07:10] LABS: BASO % 0.6 % (0.0-2.0); EOS # 0.3 K/uL (0.0-0.7); EOS % 5.1 % (0.0-4.0); LYMPH # 1.2 K/uL (1.0-4.3); LYMPH % 18.7 % (20.0-40.0); MEAN CELL VOLUME 88.8 fL (80.0-94.0); MEAN CORPUSCULAR HEMOGLOBIN 29.9 pg (27.0-31.0); MEAN CORPUSCULAR HGB CONC 33.6 g/dL (33.0-37.0); MEAN PLATELET VOLUME 7.5 fL (7.2-11.7); MONO # 0.6 K/uL (0.0-0.8); MONO % 9.4 % (0.0-10.0); NEUT # 4.3 K/uL (1.8-7.0); NEUT % 66.2 % (50.0-75.0); RBC 3.69 Mil/uL (4.40-5.90); WHITE BLOOD COUNT 6.5 K/uL (4.8-10.8)
[2017-09-29 07:17] LABS: INR 1.2; PROTHROMBIN TIME 12.7 SECONDS (9.7-12.2)
[2017-09-29] MEDS ORDERED: Lidocaine 2% MPF (5 ml) Inj ONE (07:35)
[2017-09-29] MEDS ORDERED: Bupivacaine HCl 0.25% PF (30 ml) Inj ONE (07:35)
[2017-09-29 07:41] LABS: ALBUMIN 3.2 g/dL (3.5-5.0); ALT/SGPT 26 U/L (21-72); AST/SGOT 20 U/L (17-59); BLOOD UREA NITROGEN 16 mg/dL (9-20); CALCIUM 8.7 mg/dl (8.6-10.4); GFR AFRICAN-AMERICAN > 60; GFR NON-AFRICAN AMERICAN > 60
[2017-09-29] MEDS ORDERED: Midazolam 2 MG/2 ML VIAL ONE (08:01)
[2017-09-29] MEDS ORDERED: Propofol 10 mg/ml Inj (20 ML) ONE (08:01)
--- NOTE | 2017-09-29 08:59 | PCM.SURG1 ---
Surgeon's Initial Post Op Note - Surgeon's Notes Surgeon: Dr. Dewayne Hernandes, DPM Waste Treatment Operator: Luli Bray, PGY-2 Type of Anesthesia: IV Sedation, Local (20mL 1:1 mixture of 0.25% marciane plaine to 2% lidociane plain) Anesthesia Administered By: Dr. Juan Manuel MD Pre-Operative Diagnosis: Left posterior ankle full thickness ulceration Operative Findings: See Dictation Post-Operative Diagnosis: 1) Left posterior ankle full thickness ulceration. 2 ) Left superficially necrotic tendon Operation Performed: Left posterior ankle ulcer debridement Specimen/Specimens Removed: none Estimated Blood Loss: EBL {In ML}: 5 Blood Products Given: N/A Drains Used: No Drains Post-Op Condition: Good Date of Surgery/Procedure: 09/29/17 Time of Surgery/Procedure: 08:50
--- NOTE | 2017-09-29 09:00 | CP.PCM.PN ---
<Geovanna Hawkins - Last Filed: 09/29/17 10:48> Subjective - Date & Time of Evaluation Date of Evaluation: 09/29/17 Time of Evaluation: 07:00 - Subjective Subjective: Medicine Progress Note: Patient was seen and examined at bedside in the AM. Patient is s/p debridement this morning. Patient denies pain, nausea, vomiting or fever. Patient states he is feeling well. Objective - Vital Signs/Intake and Output Vital Signs (last 24 hours): Temp Pulse Resp BP Pulse Ox 97.9 F 68 20 106/64 96 09/29/17 08:00 09/29/17 08:00 09/29/17 08:00 09/29/17 08:00 09/29/17 08:00 Intake and Output: 09/29/17 09/29/17 06:59 18:59 Intake Total 1200 Balance 1200 - Medications Medications: Current Medications Acetaminophen (Tylenol 325mg Tab) 650 mg PO Q6 PRN PRN Reason: Fever >100.4 F Last Admin: 09/28/17 16:45 Dose: 650 mg Enoxaparin Sodium (Lovenox) 30 mg SC DAILY [facility] Last Admin: 09/28/17 09:47 Dose: 30 mg Sodium Chloride (Sodium Chloride 0.9%) 1,000 mls @ 100 mls/hr IV .Q10H [facility] Last Admin: 09/28/17 22:53 Dose: 100 mls/hr Cefepime HCl (Maxipime Iv 1 Gm Premix) 1 gm in 50 mls @ 100 mls/hr IVPB Q12H [facility] PRN Reason: Protocol Last Admin: 09/29/17 05:17 Dose: 100 mls/hr Vancomycin/Sodium Chloride (Vancomycin 1 Gm/Ns 200 Ml) 1 gm in 200 mls @ 133.333 mls/hr IVPB Q24H [facility] PRN Reason: Protocol Stop: 10/03/17 16:01 Last Admin: 09/28/17 16:13 Dose: 133.333 mls/hr Ketorolac Tromethamine (Toradol) 15 mg IVP Q6 PRN PRN Reason: Pain, moderate (4-7) Last Admin: 09/28/17 10:35 Dose: 15 mg Sodium Hypochlorite (Dakins Solution 0.125%) 1 appl TOP DAILY [facility] Tramadol HCl (Ultram) 25 mg PO TID [facility] Stop: 10/02/17 12:00 - Labs Labs: 09/29/17 07:03 09/29/17 07:03 PT 12.7 SECONDS (9.7-12.2) H 09/29/17 07:03 INR 1.2 09/29/17 07:03 APTT 30 SECONDS (21-34) D 09/29/17 07:03 - Constitutional Appears: No Acute Distress - Head Exam Head Exam: ATRAUMATIC, NORMAL INSPECTION - Eye Exam Eye Exam: EOMI, Normal appearance, PERRL Pupil Exam: NORMAL ACCOMODATION - ENT Exam ENT Exam: Mucous Membranes Moist - Respiratory Exam Respiratory Exam: Clear to Ausculation Bilateral, NORMAL BREATHING PATTERN - Cardiovascular Exam Cardiovascular Exam: REGULAR RHYTHM, +S1, +S2 - GI/Abdominal Exam GI & Abdominal Exam: Soft, Normal Bowel Sounds. absent: Tenderness - Extremities Exam Additional comments: Left posterior Lower extremity 2nd stage ulcer - dressing - clean/dry/intact - Neurological Exam Neurological Exam: Alert, Awake, Oriented x3 - Psychiatric Exam Psychiatric exam: Normal Affect, Normal Mood - Skin Skin Exam: Normal Color Assessment and Plan - Assessment and Plan (Free Text) Assessment: Disposition: Patient stable for discharge pending [facility] approval. Patient to continue Cefepime 1gm q12h and Vancomycin 1gm q24h IV for 7 more days. Left leg Cellulitis - Stable vital signs and normal WBC count on presentation - ID Consult: Dr. Willams --> help appreciated - Podiatry Consult: Dr. Hernandes --> help appreciated - s/p Debriedment 09/28/17 - Patient is medically optimized for surgery; Detsky score of 5 - Class I 6% risk of complications - EKG NSR @ 69bpm - Chest Xray: no cardiopulmonary active disease - Wound care consult --> help appreciated - f/u wound cultures: rare polymorphonuclear WBCs; rare gram positive cocci - blood cultures: no growth --> f/u final report - PICC Line ordered - Medications: * Vanco 1gm q24h IV started 09/28/17 continue for 7 more days * Cefepime 1gm q12h IV started 09/28/17 continue for 7 more days * Tylenol prn for fever * Toradol 15mg q6 prn for pain - CT of left LE without contrast (09/27/17): Findings consistent with diffuse cellulitis involving the distal 2/3 of the left lower extremity as above. There is mild skin thickening from just above the level of the ankle joint distally into the proximal midfoot region. No evidence of drainable fluid collections or subcutaneous emphysema. .No obvious cortical destructive changes suggest overt osteomyelitis however the possibility of an early osteomyelitis cannot be excluded. Followup on three-phase bone scan or MRI could be obtained for further evaluation to exclude early osteomyelitis. Prophylaxis - Lovenox 30mg SC daily - No indication for GI prophylaxis - SCDs contraindication Case discussed with Dr. Sanjuanita Hawkins PGY-1 <Pierce Gann H - Last Filed: 09/29/17 14:39> Objective - Vital Signs/Intake and Output Vital Signs (last 24 hours): Temp Pulse Resp BP Pulse Ox 98.5 F 65 12 112/70 100 09/29/17 10:00 09/29/17 10:00 09/29/17 10:00 09/29/17 10:00 09/29/17 10:00 Intake and Output: 09/29/17 09/29/17 06:59 18:59 Intake Total 1200 750 Balance 1200 750 - Medications Medications: Current Medications Acetaminophen (Tylenol 325mg Tab) 650 mg PO Q6 PRN PRN Reason: Fever >100.4 F Last Admin: 09/28/17 16:45 Dose: 650 mg Enoxaparin Sodium (Lovenox) 30 mg SC DAILY [facility] Last Admin: 09/28/17 09:47 Dose: 30 mg Cefepime HCl (Maxipime Iv 1 Gm Premix) 1 gm in 50 mls @ 100 mls/hr IVPB Q12H [facility] PRN Reason: Protocol Last Admin: 09/29/17 05:17 Dose: 100 mls/hr Vancomycin/Sodium Chloride (Vancomycin 1 Gm/Ns 200 Ml) 1 gm in 200 mls @ 133.333 mls/hr IVPB Q24H [facility] PRN Reason: Protocol Stop: 10/03/17 16:01 Last Admin: 09/28/17 16:13 Dose: 133.333 mls/hr Sodium Chloride (Sodium Chloride 0.9%) 1,000 mls @ 50 mls/hr IV .Q20H [facility] Last Admin: 09/29/17 11:40 Dose: 50 mls/hr Ketorolac Tromethamine (Toradol) 15 mg IVP Q6 PRN PRN Reason: Pain, moderate (4-7) Last Admin: 09/28/17 10:35 Dose: 15 mg Sodium Hypochlorite (Dakins Solution 0.125%) 1 appl TOP DAILY [facility] Last Admin: 09/29/17 09:12 Dose: Not Given Tramadol HCl (Ultram) 25 mg PO TID [facility] Stop: 10/02/17 12:00 Last Admin: 09/29/17 13:50 Dose: 25 mg - Labs Labs: 09/29/17 07:03 09/29/17 07:03 PT 12.7 SECONDS (9.7-12.2) H 09/29/17 07:03 INR 1.2 09/29/17 07:03 APTT 30 SECONDS (21-34) D 09/29/17 07:03 Attending/Attestation - Attestation I have personally seen and examined this patient.: Yes I have fully participated in the care of the patient.: Yes I have reviewed all pertinent clinical information, including history, physical exam and plan: Yes Notes (Text): 09/29/17 14:37 Medical attending: Patient was seen and examined by me, agrees the above note by the medical certification specialist. Earlier this morning the patient went to the OR with podiatry service and had a debridement of that area. By the time he came back we saw him again and he reported that he is feeling well he did not have any pain. At this time we'll continue with the IV antibiotics. Hopefully will be able to get a PICC line, and at some point he'll be discharge with several more days of IV antibiotics at rehabilitation Thank you very much, Pierce Gann
[2017-09-29] MEDS: Tramadol 25 mg PO SCH ×3 (09:14→17:22)
[2017-09-29] MEDS ORDERED: HYDROmorphone 0.5 mg/0.5 ml ISec IVP PRN (09:18)
[2017-09-29] MEDS ORDERED: Lactated Ringer's 1,000 ML IV SCH (09:30)
[2017-09-29] MEDS: Sodium Chloride 0.9% 1,000 ML IV SCH ×2 (11:40→23:22)
--- NOTE | 2017-09-29 14:36 | RAD ---
PROCEDURE: CHEST RADIOGRAPH, 1 VIEW HISTORY: s/p PICC line placement COMPARISON: Comparison made with chest radiograph dated 09/28/2017 at 13:30 4 hours. FINDINGS: Interval placement right-sided PICC line with tip in the SVC. LUNGS: There appears be some mild honeycombing changes/fibrosis both lung apices right greater than left. No acute consolidation. PLEURA: No pneumothorax or pleural fluid seen. CARDIOVASCULAR: Normal. OSSEOUS STRUCTURES: No significant abnormalities. VISUALIZED UPPER ABDOMEN: Normal. OTHER FINDINGS: None. IMPRESSION: Interval placement right-sided PICC line as described. Minor honeycombing changes both lung apices right greater than left. No acute consolidation
[2017-09-29] MEDS: Vancomycin 1 gm/NS 200 ml 1 GM/200 ML BAG IVPB SCH (16:45)
[2017-09-29 16:48] VITALS: RESP 20
--- NOTE | 2017-09-29 18:22 | CP.PCM.PN ---
Subjective - Date & Time of Evaluation Date of Evaluation: 09/29/17 Time of Evaluation: 07:00 - Subjective Subjective: s/p debridement wound care in progress for [facility] Objective - Vital Signs/Intake and Output Vital Signs (last 24 hours): Temp Pulse Resp BP Pulse Ox 97.5 F L 75 20 101/70 98 09/29/17 15:00 09/29/17 15:00 09/29/17 15:00 09/29/17 15:00 09/29/17 15:00 Intake and Output: 09/29/17 09/29/17 06:59 18:59 Intake Total 1200 750 Balance 1200 750 - Medications Medications: Current Medications Acetaminophen (Tylenol 325mg Tab) 650 mg PO Q6 PRN PRN Reason: Fever >100.4 F Last Admin: 09/28/17 16:45 Dose: 650 mg Enoxaparin Sodium (Lovenox) 30 mg SC DAILY [facility] Last Admin: 09/28/17 09:47 Dose: 30 mg Cefepime HCl (Maxipime Iv 1 Gm Premix) 1 gm in 50 mls @ 100 mls/hr IVPB Q12H [facility] PRN Reason: Protocol Last Admin: 09/29/17 17:59 Dose: 100 mls/hr Vancomycin/Sodium Chloride (Vancomycin 1 Gm/Ns 200 Ml) 1 gm in 200 mls @ 133.333 mls/hr IVPB Q24H [facility] PRN Reason: Protocol Stop: 10/03/17 16:01 Last Admin: 09/29/17 16:45 Dose: 133.333 mls/hr Sodium Chloride (Sodium Chloride 0.9%) 1,000 mls @ 50 mls/hr IV .Q20H [facility] Last Admin: 09/29/17 11:40 Dose: 50 mls/hr Ketorolac Tromethamine (Toradol) 15 mg IVP Q6 PRN PRN Reason: Pain, moderate (4-7) Last Admin: 09/28/17 10:35 Dose: 15 mg Sodium Hypochlorite (Dakins Solution 0.125%) 1 appl TOP DAILY [facility] Last Admin: 09/29/17 09:12 Dose: Not Given Tramadol HCl (Ultram) 25 mg PO TID [facility] Stop: 10/02/17 12:00 Last Admin: 09/29/17 17:22 Dose: 25 mg - Labs Labs: 09/29/17 07:03 09/29/17 07:03 PT 12.7 SECONDS (9.7-12.2) H 09/29/17 07:03 INR 1.2 09/29/17 07:03 APTT 30 SECONDS (21-34) D 09/29/17 07:03 - Constitutional Appears: Non-toxic, Chronically Ill - Head Exam Head Exam: NORMOCEPHALIC - Eye Exam Eye Exam: PERRL - ENT Exam ENT Exam: Mucous Membranes Dry - Neck Exam Neck Exam: absent: Lymphadenopathy - Respiratory Exam Respiratory Exam: Decreased Breath Sounds - Cardiovascular Exam Cardiovascular Exam: REGULAR RHYTHM - GI/Abdominal Exam GI & Abdominal Exam: Distended Assessment and Plan (1) Cellulitis Status: Acute (2) Wound infection Status: Acute
[2017-09-30] MEDS: Cefepime IV 1 gm in Dextrose 1 GM/50 ML BAG IVPB SCH (04:51)
[2017-09-30 07:20] LABS: BASO # 0.1 K/uL (0.0-0.2); BASO % 0.8 % (0.0-2.0); EOS # 0.4 K/uL (0.0-0.7); EOS % 5.1 % (0.0-4.0); HEMOGLOBIN 10.6 g/dL (12.0-18.0); LYMPH # 1.5 K/uL (1.0-4.3); LYMPH % 21.1 % (20.0-40.0); MEAN CELL VOLUME 89.2 fL (80.0-94.0); MEAN CORPUSCULAR HEMOGLOBIN 30.1 pg (27.0-31.0); MEAN CORPUSCULAR HGB CONC 33.8 g/dL (33.0-37.0); MEAN PLATELET VOLUME 7.9 fL (7.2-11.7); MONO # 0.7 K/uL (0.0-0.8); MONO % 9.4 % (0.0-10.0); NEUT # 4.4 K/uL (1.8-7.0); NEUT % 63.6 % (50.0-75.0); NRBC % 0.1 % (0.0-2.0); RBC 3.5 Mil/uL (4.40-5.90); RED CELL DISTRIBUTION WIDTH 12.8 % (11.5-14.5); WHITE BLOOD COUNT 6.9 K/uL (4.8-10.8)
[2017-09-30 07:39] LABS: ALBUMIN 3.2 g/dL (3.5-5.0); ALT/SGPT 21 U/L (21-72); AST/SGOT 20 U/L (17-59); BLOOD UREA NITROGEN 17 mg/dL (9-20); CALCIUM 8.8 mg/dl (8.6-10.4); GFR AFRICAN-AMERICAN > 60; GFR NON-AFRICAN AMERICAN > 60
--- NOTE | 2017-09-30 08:28 | CP.PCM.PN ---
<Buck Bermudez - Last Filed: 09/30/17 10:43> Subjective - Date & Time of Evaluation Date of Evaluation: 09/30/17 Time of Evaluation: 08:25 - Subjective Subjective: PGY-[address] Gann's service: Pt seen and examined at bedside. Nursing reports no acute events overnight. Pt POD # 2 wound debridement. Pt states he feels no pain, only "warm sensation in the left leg." Denies fever, chills, chest pain, abd pain, N/V. Objective - Vital Signs/Intake and Output Vital Signs (last 24 hours): Temp Pulse Resp BP Pulse Ox 98.2 F 71 20 96/60 L 95 09/30/17 08:12 09/30/17 08:12 09/30/17 08:12 09/30/17 08:12 09/30/17 08:12 - Medications Medications: Current Medications Acetaminophen (Tylenol 325mg Tab) 650 mg PO Q6 PRN PRN Reason: Fever >100.4 F Last Admin: 09/28/17 16:45 Dose: 650 mg Enoxaparin Sodium (Lovenox) 30 mg SC DAILY [facility] Last Admin: 09/28/17 09:47 Dose: 30 mg Cefepime HCl (Maxipime Iv 1 Gm Premix) 1 gm in 50 mls @ 100 mls/hr IVPB Q12H [facility] PRN Reason: Protocol Last Admin: 09/30/17 04:51 Dose: 100 mls/hr Vancomycin/Sodium Chloride (Vancomycin 1 Gm/Ns 200 Ml) 1 gm in 200 mls @ 133.333 mls/hr IVPB Q24H [facility] PRN Reason: Protocol Stop: 10/03/17 16:01 Last Admin: 09/29/17 16:45 Dose: 133.333 mls/hr Sodium Chloride (Sodium Chloride 0.9%) 1,000 mls @ 50 mls/hr IV .Q20H [facility] Last Admin: 09/29/17 23:22 Dose: 50 mls/hr Ketorolac Tromethamine (Toradol) 15 mg IVP Q6 PRN PRN Reason: Pain, moderate (4-7) Last Admin: 09/28/17 10:35 Dose: 15 mg Sodium Hypochlorite (Dakins Solution 0.125%) 1 appl TOP DAILY [facility] Last Admin: 09/29/17 09:12 Dose: Not Given Tramadol HCl (Ultram) 25 mg PO TID [facility] Stop: 10/02/17 12:00 Last Admin: 09/29/17 17:22 Dose: 25 mg - Labs Labs: 09/30/17 07:07 09/30/17 07:07 PT 12.7 SECONDS (9.7-12.2) H 09/29/17 07:03 INR 1.2 09/29/17 07:03 APTT 30 SECONDS (21-34) D 09/29/17 07:03 - Additional Findings Additional findings: - Constitutional Appears: No Acute Distress - Head Exam Head Exam: ATRAUMATIC, NORMAL INSPECTION - Eye Exam Eye Exam: EOMI, Normal appearance, PERRL Pupil Exam: NORMAL ACCOMODATION - ENT Exam ENT Exam: Mucous Membranes Moist - Respiratory Exam Respiratory Exam: Clear to Ausculation Bilateral, NORMAL BREATHING PATTERN - Cardiovascular Exam Cardiovascular Exam: REGULAR RHYTHM, +S1, +S2 - GI/Abdominal Exam GI & Abdominal Exam: Soft, Normal Bowel Sounds. absent: Tenderness - Extremities Exam Additional comments: Left Lower extremity dressing - clean/dry/intact - Neurological Exam Neurological Exam: Alert, Awake, Oriented x3 - Psychiatric Exam Psychiatric exam: Normal Affect, Normal Mood - Skin Skin Exam: Normal Color Assessment and Plan - Assessment and Plan (Free Text) Plan: Disposition: Patient stable for discharge pending [facility] approval. Patient to continue Cefepime 1gm q12h and Vancomycin 1gm q24h IV for 6 additional days. Follow up with Dr Hernandes, Podiatry after discharge from rehab. Left leg Cellulitis - Afebrile, normal WBC - ID Consult: Dr. Willams --> help appreciated - Podiatry Consult: Dr. Hernandes --> help appreciated - s/p Debriedment 09/28/17 - Patient is medically optimized for surgery; Detsky score of 5 - Class I 6% risk of complications - EKG NSR @ 69bpm - Chest Xray: no cardiopulmonary active disease - Wound care consult --> help appreciated - wound cultures (09/27/17): P. aeurginosae, Corynebacterium spp. - blood cultures: no growth x 48 hrs - PICC Line ordered - Medications: * Vanco 1gm q24h IV started 09/28/17 continue for 7 more days * Cefepime 1gm q12h IV started 09/28/17 continue for 7 more days * Tylenol prn for fever * Toradol 15mg q6 prn for pain - CT of left LE without contrast (09/27/17): Findings consistent with diffuse cellulitis involving the distal 2/3 of the left lower extremity as above. There is mild skin thickening from just above the level of the ankle joint distally into the proximal midfoot region. No evidence of drainable fluid collections or subcutaneous emphysema. .No obvious cortical destructive changes suggest overt osteomyelitis however the possibility of an early osteomyelitis cannot be excluded. Followup on three-phase bone scan or MRI could be obtained for further evaluation to exclude early osteomyelitis. Prophylaxis - Lovenox 30mg SC daily - No indication for GI prophylaxis - SCDs contraindicated Case discussed with Dr. Sanjuanita Bermudez PGY-2 <Pierce Gann - Last Filed: 09/30/17 12:24> Objective - Vital Signs/Intake and Output Vital Signs (last 24 hours): Temp Pulse Resp BP Pulse Ox 98.2 F 71 20 96/60 L 95 09/30/17 08:12 09/30/17 08:12 09/30/17 08:12 09/30/17 08:12 09/30/17 08:12 - Medications Medications: Current Medications Acetaminophen (Tylenol 325mg Tab) 650 mg PO Q6 PRN PRN Reason: Fever >100.4 F Last Admin: 09/28/17 16:45 Dose: 650 mg Enoxaparin Sodium (Lovenox) 30 mg SC DAILY [facility] Last Admin: 09/30/17 10:00 Dose: Not Given Cefepime HCl (Maxipime Iv 1 Gm Premix) 1 gm in 50 mls @ 100 mls/hr IVPB Q12H [facility] PRN Reason: Protocol Last Admin: 09/30/17 04:51 Dose: 100 mls/hr Vancomycin/Sodium Chloride (Vancomycin 1 Gm/Ns 200 Ml) 1 gm in 200 mls @ 133.333 mls/hr IVPB Q24H [facility] PRN Reason: Protocol Stop: 10/03/17 16:01 Last Admin: 09/29/17 16:45 Dose: 133.333 mls/hr Sodium Chloride (Sodium Chloride 0.9%) 1,000 mls @ 50 mls/hr IV .Q20H [facility] Last Admin: 09/29/17 23:22 Dose: 50 mls/hr Ketorolac Tromethamine (Toradol) 15 mg IVP Q6 PRN PRN Reason: Pain, moderate (4-7) Last Admin: 09/28/17 10:35 Dose: 15 mg Sodium Hypochlorite (Dakins Solution 0.125%) 1 appl TOP DAILY [facility] Last Admin: 09/30/17 11:08 Dose: Not Given Tramadol HCl (Ultram) 25 mg PO TID [facility] Stop: 10/02/17 12:00 Last Admin: 09/30/17 11:08 Dose: 25 mg - Labs Labs: 09/30/17 07:07 09/30/17 07:07 PT 12.7 SECONDS (9.7-12.2) H 09/29/17 07:03 INR 1.2 09/29/17 07:03 APTT 30 SECONDS (21-34) D 09/29/17 07:03 Attending/Attestation - Attestation I have personally seen and examined this patient.: Yes I have fully participated in the care of the patient.: Yes I have reviewed all pertinent clinical information, including history, physical exam and plan: Yes Notes (Text): 09/30/17 12:22 Medical attending: Patient was seen and examined by me as well. Agree with the above note by the resident. Patient now has a PICC line and will need to be on several more days of IV abx. The patient reports he has no pain of the left lower extremity but that it felt warm to him. The patient is S/P debridment by podiatry and per my conversation with podiatry team this AM he can be discharged. The child protective services social worker was notified yesterday and we later confirmed that he can be discharged today. He will have to go on IV abx as well as undergo physicial therapy thank you Pierce Gann
[2017-09-30] MEDS: Enoxaparin 30 mg Syringe SC SCH (10:00)
--- NOTE | 2017-09-30 11:06 | CP.PCM.DIS ---
<Buck Bermudez - Last Filed: 09/30/17 11:13> Provider - Provider Date of Admission: 09/27/17 14:26 Attending physician: Pierce Gann DO Primary care physician: Dr. Voss (Gordon) Consults: Dr. Hernandes (podiatry) Dr. Willams (ID) Time Spent in preparation of Discharge (in minutes): 42 Diagnosis - Discharge Diagnosis (1) Cellulitis Status: Acute Comment: see hospital course for details Hospital Course - Lab Results Lab Results: Micro Results 09/27/17 13:39 Leg - Left Gram Stain - Final 09/27/17 13:39 Leg - Left Wound Culture - Final Pseudomonas Aeruginosa Corynebacterium Species 09/27/17 13:45 Blood Blood Culture - Preliminary NO GROWTH AFTER 48 HOURS 09/27/17 13:00 Blood Blood Culture - Preliminary NO GROWTH AFTER 48 HOURS Most Recent Lab Values WBC 6.9 K/uL (4.8-10.8) 09/30/17 07:07 RBC 3.50 Mil/uL (4.40-5.90) L 09/30/17 07:07 Hgb 10.6 g/dL (12.0-18.0) L 09/30/17 07:07 Hct 31.2 % (35.0-51.0) L 09/30/17 07:07 MCV 89.2 fL (80.0-94.0) 09/30/17 07:07 MCH 30.1 pg (27.0-31.0) 09/30/17 07:07 MCHC 33.8 g/dL (33.0-37.0) 09/30/17 07:07 RDW 12.8 % (11.5-14.5) 09/30/17 07:07 Plt Count 267 K/uL (130-400) 09/30/17 07:07 MPV 7.9 fL (7.2-11.7) 09/30/17 07:07 Neut % (Auto) 63.6 % (50.0-75.0) 09/30/17 07:07 Lymph % (Auto) 21.1 % (20.0-40.0) 09/30/17 07:07 Wilbarger % (Auto) 9.4 % (0.0-10.0) 09/30/17 07:07 Eos % (Auto) 5.1 % (0.0-4.0) H 09/30/17 07:07 Baso % (Auto) 0.8 % (0.0-2.0) 09/30/17 07:07 Neut # (Auto) 4.4 K/uL (1.8-7.0) 09/30/17 07:07 Lymph # (Auto) 1.5 K/uL (1.0-4.3) 09/30/17 07:07 Wilbarger # (Auto) 0.7 K/uL (0.0-0.8) 09/30/17 07:07 Eos # (Auto) 0.4 K/uL (0.0-0.7) 09/30/17 07:07 Baso # (Auto) 0.1 K/uL (0.0-0.2) 09/30/17 07:07 PT 12.7 SECONDS (9.7-12.2) H 09/29/17 07:03 INR 1.2 09/29/17 07:03 APTT 30 SECONDS (21-34) D 09/29/17 07:03 Sodium 141 mmol/L (132-148) 09/30/17 07:07 Potassium 4.3 mmol/L (3.6-5.2) 09/30/17 07:07 Chloride 106 mmol/L (98-107) 09/30/17 07:07 Carbon Dioxide 28 mmol/L (22-30) 09/30/17 07:07 Anion Gap 11 (10-20) 09/30/17 07:07 BUN 17 mg/dL (9-20) 09/30/17 07:07 Creatinine 0.9 mg/dL (0.8-1.5) 09/30/17 07:07 Est GFR ( Amer) > 60 09/30/17 07:07 Est GFR (Non-Af Amer) > 60 09/30/17 07:07 POC Glucose (mg/dL) 98 mg/dL (65-110) 09/30/17 06:55 Random Glucose 92 mg/dL (75-110) 09/30/17 07:07 Calcium 8.8 mg/dl (8.6-10.4) 09/30/17 07:07 Phosphorus 3.2 mg/dL (2.5-4.5) 09/30/17 07:07 Magnesium 2.1 mg/dL (1.6-2.3) 09/30/17 07:07 Total Bilirubin 0.4 mg/dL (0.2-1.3) 09/30/17 07:07 AST 20 U/L (17-59) 09/30/17 07:07 ALT 21 U/L (21-72) 09/30/17 07:07 Alkaline Phosphatase 81 U/L (38-126) 09/30/17 07:07 Total Protein 6.3 g/dL (6.3-8.3) 09/30/17 07:07 Albumin 3.2 g/dL (3.5-5.0) L 09/30/17 07:07 Globulin 3.1 gm/dL (2.2-3.9) 09/30/17 07:07 Albumin/Globulin Ratio 1.0 (1.0-2.1) 09/30/17 07:07 Vancomycin Trough 7.9 ug/mL (5.0-10.0) 09/29/17 07:03 Hepatitis A IgM Ab Negative (NEGATIVE) 09/28/17 08:29 Hep Bs Antigen Negative (NEGATIVE) 09/28/17 08:29 Hep B Core IgM Ab Negative (NEGATIVE) 09/28/17 08:29 Hepatitis C Antibody Negative (NEGATIVE) 09/28/17 08:29 HIV 1&2 Antibody Screen Negative (NEGATIVE) 09/28/17 08:29 Blood Type B POSITIVE 09/28/17 14:01 Antibody Screen Negative 09/28/17 14:01 - Hospital Course Hospital Course: ON ADMISSION: 72 year old male with past medical history of cerebral palsy presented to hospital for left calf wound that started 4 days ago. Wound started draining a couple days ago accompanied with foul odor which prompted him to come to ED. Patient has been applying OTC ointment with no relief. Patient denies having any F/C, numbness/tingling in LE B/L, or pain in B/L LE. Patient denies having any recent insect bite or trauma to the area. Patient denies having any CP, SOB , abd pain, N/V/D/c, F/C. Hospital course: Patient admitted on 09/27/17. CT lower extremity of LE perfomred in ED showed cellulitis but no suggestion of osteomyelitis. ID consulted, Dr. Willams. Podiatry consulted, Dr. Hernandes. enterprise application architect, Erick Montejo consulted. Patient started on Vanco/Cefepime IV. Wound debridement 09/29/17 by podiatry. PICC line placed. Will need one week of cefepime and vancomycin per ID. Discharge Exam - Head Exam Head Exam: NORMOCEPHALIC Discharge Plan - Discharge Medications Prescriptions: Cefepime 1gm in NS 50ml [Maxipime 1gm] 1 gm IV Q12H 7 Days bag Vancomycin 1 gm/NS 200 ml [Vancocin] 1 gm IV Q24H 7 Days bag - Follow Up Plan Condition: STABLE Disposition: REHAB FACILITY/REHAB UNIT Additional Instructions: Pt stable for discharge per Dr. Gann Pt should continue to receive the medications listed on the med reconciliation. Pt was discharged with working PICC line. He will continue receiving Vancomycin and Cefepime for 6 additional days (last dose 10/05/17). Pt should follow up with PMD after discharge to assure complete healing of cellulitis. Pt should return to the ED if symptoms return or worsen. Patient verbalized understanding to these instructions and agreed. Prescribed Medications: See medical reconciliation Referrals: Dewayne Hernandes DPM [Staff Provider] - <Pierce Gann - Last Filed: 09/30/17 12:25> Provider - Provider Date of Admission: 09/27/17 14:26 Attending physician: Pierce Gann, DO Hospital Course - Lab Results Lab Results: Micro Results 09/27/17 13:39 Leg - Left Gram Stain - Final 09/27/17 13:39 Leg - Left Wound Culture - Final Pseudomonas Aeruginosa Corynebacterium Species 09/27/17 13:45 Blood Blood Culture - Preliminary NO GROWTH AFTER 48 HOURS 09/27/17 13:00 Blood Blood Culture - Preliminary NO GROWTH AFTER 48 HOURS Most Recent Lab Values WBC 6.9 K/uL (4.8-10.8) 09/30/17 07:07 RBC 3.50 Mil/uL (4.40-5.90) L 09/30/17 07:07 Hgb 10.6 g/dL (12.0-18.0) L 09/30/17 07:07 Hct 31.2 % (35.0-51.0) L 09/30/17 07:07 MCV 89.2 fL (80.0-94.0) 09/30/17 07:07 MCH 30.1 pg (27.0-31.0) 09/30/17 07:07 MCHC 33.8 g/dL (33.0-37.0) 09/30/17 07:07 RDW 12.8 % (11.5-14.5) 09/30/17 07:07 Plt Count 267 K/uL (130-400) 09/30/17 07:07 MPV 7.9 fL (7.2-11.7) 09/30/17 07:07 Neut % (Auto) 63.6 % (50.0-75.0) 09/30/17 07:07 Lymph % (Auto) 21.1 % (20.0-40.0) 09/30/17 07:07 Wilbarger % (Auto) 9.4 % (0.0-10.0) 09/30/17 07:07 Eos % (Auto) 5.1 % (0.0-4.0) H 09/30/17 07:07 Baso % (Auto) 0.8 % (0.0-2.0) 09/30/17 07:07 Neut # (Auto) 4.4 K/uL (1.8-7.0) 09/30/17 07:07 Lymph # (Auto) 1.5 K/uL (1.0-4.3) 09/30/17 07:07 Wilbarger # (Auto) 0.7 K/uL (0.0-0.8) 09/30/17 07:07 Eos # (Auto) 0.4 K/uL (0.0-0.7) 09/30/17 07:07 Baso # (Auto) 0.1 K/uL (0.0-0.2) 09/30/17 07:07 PT 12.7 SECONDS (9.7-12.2) H 09/29/17 07:03 INR 1.2 09/29/17 07:03 APTT 30 SECONDS (21-34) D 09/29/17 07:03 Sodium 141 mmol/L (132-148) 09/30/17 07:07 Potassium 4.3 mmol/L (3.6-5.2) 09/30/17 07:07 Chloride 106 mmol/L (98-107) 09/30/17 07:07 Carbon Dioxide 28 mmol/L (22-30) 09/30/17 07:07 Anion Gap 11 (10-20) 09/30/17 07:07 BUN 17 mg/dL (9-20) 09/30/17 07:07 Creatinine 0.9 mg/dL (0.8-1.5) 09/30/17 07:07 Est GFR ( Amer) > 60 09/30/17 07:07 Est GFR (Non-Af Amer) > 60 09/30/17 07:07 POC Glucose (mg/dL) 126 mg/dL (65-110) H 09/30/17 11:37 Random Glucose 92 mg/dL (75-110) 09/30/17 07:07 Calcium 8.8 mg/dl (8.6-10.4) 09/30/17 07:07 Phosphorus 3.2 mg/dL (2.5-4.5) 09/30/17 07:07 Magnesium 2.1 mg/dL (1.6-2.3) 09/30/17 07:07 Total Bilirubin 0.4 mg/dL (0.2-1.3) 09/30/17 07:07 AST 20 U/L (17-59) 09/30/17 07:07 ALT 21 U/L (21-72) 09/30/17 07:07 Alkaline Phosphatase 81 U/L (38-126) 09/30/17 07:07 Total Protein 6.3 g/dL (6.3-8.3) 09/30/17 07:07 Albumin 3.2 g/dL (3.5-5.0) L 09/30/17 07:07 Globulin 3.1 gm/dL (2.2-3.9) 09/30/17 07:07 Albumin/Globulin Ratio 1.0 (1.0-2.1) 09/30/17 07:07 Vancomycin Trough 7.9 ug/mL (5.0-10.0) 09/29/17 07:03 Hepatitis A IgM Ab Negative (NEGATIVE) 09/28/17 08:29 Hep Bs Antigen Negative (NEGATIVE) 09/28/17 08:29 Hep B Core IgM Ab Negative (NEGATIVE) 09/28/17 08:29 Hepatitis C Antibody Negative (NEGATIVE) 09/28/17 08:29 HIV 1&2 Antibody Screen Negative (NEGATIVE) 09/28/17 08:29 Blood Type B POSITIVE 09/28/17 14:01 Antibody Screen Negative 09/28/17 14:01 Attending/Attestation - Attestation I have personally seen and examined this patient.: Yes I have fully participated in the care of the patient.: Yes I have reviewed all pertinent clinical information, including history, physical exam and plan: Yes Notes (Text): 09/30/17 12:25 09/30/17 12:22 Medical attending: Patient was seen and examined by me as well. Agree with the above note by the resident. Patient now has a PICC line and will need to be on several more days of IV abx. The patient reports he has no pain of the left lower extremity but that it felt warm to him. The patient is S/P debridment by podiatry and per my conversation with podiatry team this AM he can be discharged. The social psychologist was notified yesterday and we later confirmed that he can be discharged today. He will have to go on IV abx as well as undergo physicial therapy thank you Pierce Gann
[2017-09-30] MEDS: Tramadol 25 mg PO SCH ×2 (11:08→14:32)
--- NOTE | 2017-09-30 12:16 | CP.PCM.PN ---
Subjective - Date & Time of Evaluation Date of Evaluation: 09/30/17 Time of Evaluation: 12:13 (.) - Subjective Subjective: Podiatry Progress Note - Dr. Hernandes 72 year old male seen POD#1 for left lower leg wound with attending Dr. Hernandes. Pt denies any pedal pain a this time. He denies any acute overnight events. He denies overnight n/v/f/c/cp/sob/d. Objective - Vital Signs/Intake and Output Vital Signs (last 24 hours): Temp Pulse Resp BP Pulse Ox 98.2 F 71 20 96/60 L 95 09/30/17 08:12 09/30/17 08:12 09/30/17 08:12 09/30/17 08:12 09/30/17 08:12 - Medications Medications: Current Medications Acetaminophen (Tylenol 325mg Tab) 650 mg PO Q6 PRN PRN Reason: Fever >100.4 F Last Admin: 09/28/17 16:45 Dose: 650 mg Enoxaparin Sodium (Lovenox) 30 mg SC DAILY [facility] Last Admin: 09/30/17 10:00 Dose: Not Given Cefepime HCl (Maxipime Iv 1 Gm Premix) 1 gm in 50 mls @ 100 mls/hr IVPB Q12H YUSRA PRN Reason: Protocol Last Admin: 09/30/17 04:51 Dose: 100 mls/hr Vancomycin/Sodium Chloride (Vancomycin 1 Gm/Ns 200 Ml) 1 gm in 200 mls @ 133.333 mls/hr IVPB Q24H YUSRA PRN Reason: Protocol Stop: 10/03/17 16:01 Last Admin: 09/29/17 16:45 Dose: 133.333 mls/hr Sodium Chloride (Sodium Chloride 0.9%) 1,000 mls @ 50 mls/hr IV .Q20H YUSRA Last Admin: 09/29/17 23:22 Dose: 50 mls/hr Ketorolac Tromethamine (Toradol) 15 mg IVP Q6 PRN PRN Reason: Pain, moderate (4-7) Last Admin: 09/28/17 10:35 Dose: 15 mg Sodium Hypochlorite (Dakins Solution 0.125%) 1 appl TOP DAILY YUSRA Last Admin: 09/30/17 11:08 Dose: Not Given Tramadol HCl (Ultram) 25 mg PO TID YUSRA Stop: 10/02/17 12:00 Last Admin: 09/30/17 11:08 Dose: 25 mg - Labs Labs: 09/30/17 07:07 09/30/17 07:07 PT 12.7 SECONDS (9.7-12.2) H 09/29/17 07:03 INR 1.2 09/29/17 07:03 APTT 30 SECONDS (21-34) D 09/29/17 07:03 - Constitutional Appears: Well, Non-toxic, No Acute Distress - Extremities Exam Additional comments: Left lower extremity focused. VASC: DP pedal pulse graded 2/4, PT pulse graded 1/4. Non-pitting edema noted to distal 1/3 of lower leg. +1 pitting edema noted bilaterally extending from foot to level inferior to knee along. Mild localized callor. Capillary refill time to all digits was <3 seconds. NEURO: Protective sensation grossly intact. Negative Babinski bilaterally. DERM: Left posterior leg partial thickness ulceration noted along course of Achilles tendon. Ulcer measures 6.6 x 3 cm which appears mainly grannular with some fibrosis. No raised margins no undermining not tunnelling noted. no Mal- odor noted a this time. No active purulence or active drainage noted. no erythema, Nails are elongated, yellowed, and thickened. MUSCK: mild tenderness on palpation of the wound, Pedal muscle strength graded as 5/5 to right side and 4/5 to left side on inversion and eversion resistance. Stiff and limited ankle joint range of motion to dorsiflexion and plantar flexion. Non-fluid movement of bilateral hip extension, and knee extension. - Neurological Exam Neurological Exam: Alert, Awake, Oriented x3 - Psychiatric Exam Psychiatric exam: Normal Affect, Normal Mood Assessment and Plan - Assessment and Plan (Free Text) Assessment: 72 year old male POD#1 with left posterior leg ulcer and cellulits Plan: Pt seen and evaluated with attending, Dr. Hernandes. Chart, labs, and vitals reviewed. Afebrile, absent leukocytosis. Leg wound cultures- Cornebacterium species; pseudomonas Leg CT scan- positive for cellulits swelling to distal 2/3 of leg, absent noted OM, No noted abscess. IV abx per ID recommendations.-Vanco & Cefepime Continue local wound care. Cleansed Site with saline. Dressed with xeroform, DSD. Patient is stable from podiatry standpoint; upon discharge follow up with Dr. Hernandes at the wound care center Podiatry will continue to monitor pt while inhouse.
[2017-09-30 16:36] VITALS: BP 114/69; PULSE 66; TEMP 97; O2SAT 99
--- NOTE | 2017-10-01 06:23 | OP ---
PROCEDURE DATE: 09/30/2017 PRIMARY SURGEON: Dewayne Hernandes DPM HEAT TREAT TECHNICIAN: Zackery Bray DPM, PGY-2 ANESTHESIOLOGIST: Shay Brewster DO ANESTHESIA TYPE: IV sedation with local. PREOPERATIVE DIAGNOSIS: Left posterior ankle full-thickness ulceration. POSTOPERATIVE DIAGNOSES: 1. Left posterior ankle full-thickness ulceration. 2. Left partially necrotic Achilles tendon. PROCEDURE PERFORMED: Left posterior leg ulcer debridement. INDICATIONS: The patient is a 72-year-old male with the above-stated diagnosis. The patient has exhausted all conservative treatment options, but is in now need of surgical intervention. The patient signed the surgical consent after careful explanation of the risks, benefits, complications and alternatives to the proposed surgical procedure. No guarantees were either given or implied. All patient's questions were answered to his satisfaction. PREPARATION: The patient's n.p.o. status was confirmed prior to bringing the patient to the operating room. The patient was brought into the operating room and placed on the operating room table in a right side lateral decubitus position. Once IV sedation was confirmed to have been achieved, the patient received a total of 20 mL of a 1:1 mixture of 0.25% Marcaine plain to 2% lidocaine plain in a local block type fashion to the left posterior leg. Once the local anesthetic was confirmed to have been achieved, the patient's left foot and lower leg were then prepped and draped in the usual sterile manner and the procedure began. DESCRIPTION OF THE PROCEDURE: Left leg ulcer debridement: Attention was then directed to the posterior aspect of the patient's left lower leg where a 4.5 x 4 cm full-thickness ulceration was noted to the distal one third of the lower leg with exposed Achilles tendon fibers appreciated. Ulcerative base had necrotic core along the Achilles tendon approximately 1 cm in diameter. Remaining ulcerative bed was a predominantly fibrotic base with minimal granular tissue. Periwound area had periwound erythema after undermining with no active purulent drainage or discharge. At this time, ulcerative bed underwent extensive sharp debridement of all nonviable soft tissue using a combination of sharp dissection and Versajet water ____ on the entire aspect of the ulcerative bed. Upon completion of sharp debridement, simple system was utilized to perform mechanical debridement on ulcerative bed. Upon completion of this, wound was evaluated. It was noted to now be 4.7 x 4.3 cm. All nonviable tissue margins have been debrided. No malodor, no purulence was appreciated at this time. Achilles tendon remains attached and intact. Surgical site was noted to be healthy bleeding level of subcutaneous tissue and fascia. Surgical site was then dressed with Xeroform, 4 x 4 gauze, ABD, Santo, Kerlix, and Rodney. POSTOPERATIVE CONDITION: The patient tolerated the anesthesia and procedure well and was escorted to the recovery room with vital signs stable and neurovascular status intact to the left leg. The patient had no complaints or complications. The patient will follow up with Dr. Hernandes while in-house. Zackery Bray DPM Dewayne Hernandes DPM
--- NOTE | 2017-10-01 15:36 | CARD ---
APPROVED REPORT EKG Measurement Heart [id number] <Conclusion> Normal sinus rhythm Normal ECG
== END 2017-09-30 17:07 | DRG 571 ==
LOC: C.ER 11:54 → C.9E 14:26 → C.3T 15:37
PROVIDERS: ADMIT Hospitalist; ATTEND Hospitalist
PROC: 0JBR0ZZ Excision of Left Foot Subcutaneous Tissue and Fascia, Open Approach (ICD-10-PCS; 2017-09-29)
PROC: 02HV33Z Insertion of Infusion Device into Superior Vena Cava, Percutaneous Approach (ICD-10-PCS; principal; 2017-09-29 07:45)
DX: L03.116 Cellulitis of left lower limb (principal); L97.228 Non-pressure chronic ulcer of left calf with other specified severity; Z68.21 Body mass index [BMI] 21.0-21.9, adult; E78.5 Hyperlipidemia, unspecified; G80.9 Cerebral palsy, unspecified; I10 Essential (primary) hypertension

== ENCOUNTER 2017-10-10 17:43 | Emergency (ER) | payer MEDICARE ==
[2017-10-10 18:20] VITALS: BMI 25.7
[2017-10-10 18:29] VITALS: O2SAT 100
--- NOTE | 2017-10-10 19:20 | C.PDOC ---
History Of Present Illness 72 year old male presents to the ER with right lower leg/calf pain, tenderness, and swelling. Patient was seen here 2 weeks ago and had wound that was drained and debrided by podiatry. He had a picc line placed and was suppose to received IV cefepime and vanco, however, he did not follow up with outpatient and self removed the picc line. Patient with a Hx of dementia and cerebral palsy. Time Seen by Provider: 10/10/17 19:20 Chief Complaint (Nursing): Abnormal Skin Integrity History Per: Family History/Exam Limitations: no limitations Onset/Duration Of Symptoms: Hrs Current Symptoms Are (Timing): Still Present Location Of Injury: Right: Leg Quality Of Symptoms: Painful, Swollen Severity: Moderate Pain Scale Rating Of: 4 Recent travel outside of the [place]: No Past Medical History Reviewed: Historical Data, Nursing Documentation, Vital Signs Vital Signs: Last Vital Signs Temp 98.7 F 10/10/17 18:20 Pulse 71 10/10/17 18:20 Resp 16 10/10/17 18:20 BP 113/72 10/10/17 18:20 Pulse Ox 100 10/10/17 20:30 - Medical History PMH: Arthritis, Dementia, Fractures (left hip), HTN (denies), Hypercholesterolemia (denies) - [facility] Procedures EXCISION OF L FOOT SUBCU/FASCIA, OPEN APPROACH (09/27/17) INSERTION OF INFUSION DEV INTO SUP VENA CAVA, PERC APPROACH (09/27/17) Family History: States: No Known Family Hx - Social History Hx Tobacco Use: No Hx Alcohol Use: Yes Hx Substance Use: No - Immunization History Hx Tetanus Toxoid Vaccination: Yes Hx Influenza Vaccination: Yes Hx Pneumococcal Vaccination: Yes Review Of Systems Review Of Systems: ROS cannot be obtained secondary to pt's inabilty to answer questions. Physical Exam - Physical Exam Appears: Non-toxic Skin: Warm, Dry Head: Normacephalic Oral Mucosa: Moist Chest: Symmetrical, No Tenderness Cardiovascular: Rhythm Regular Respiratory: No Rales, No Rhonchi, No Wheezing Gastrointestinal/Abdominal: Soft, No Tenderness Extremity: Capillary Refill (<2 seconds), Other (Left leg 4x6cm wound with crust and mild surrounding erythema, no actual discharge.) Pulses: Left Dorsalis Pedis: Normal, Right Dorsalis Pedis: Normal Neurological/Psych: Other (Orientedx2) ED Course And Treatment - Laboratory Results Result Diagrams: 10/10/17 19:34 10/10/17 19:34 O2 Sat by Pulse Oximetry: 100 (Room air) Pulse Ox Interpretation: Normal Progress Note: Blood work and urinalysis ordered. IV fluids and vanco administered. Case discussed with podiatry resident who will see patient at bedside. Reevaluation Time: 20:50 Disposition Counseled Patient/Family Regarding: Studies Performed, Diagnosis, Need For Followup, Rx Given - Disposition Referrals: Dewayne Hernandes DPM [Staff Provider] - Disposition: HOME/ ROUTINE Disposition Time: 19:20 Condition: FAIR Additional Instructions: Please take your antibiotics Prescriptions: Amoxicillin/Clavulanate [Augmentin 875 MG-125 MG] 1 tab PO BID #20 tab Instructions: Cellulitis (Skin Infection), Adult (DC) Forms: [facility] ([place]) - Clinical Impression Clinical Impression: Leg ulcer, left - Scribe Statement The provider has reviewed the documentation as recorded by the Scribshashi Mariano All medical record entries made by the Arenibshashi were at my direction and personally dictated by me. I have reviewed the chart and agree that the record accurately reflects my personal performance of the history, physical exam, medical decision making, and the department course for this patient. I have also personally directed, reviewed, and agree with the discharge instructions and disposition.
[2017-10-10] MEDS ORDERED: Sodium Chloride 0.9% 1,000 ML IV SCH (19:30)
[2017-10-10 19:37] LABS: BASO # 0.1 K/uL (0.0-0.2); BASO % 0.9 % (0.0-2.0); EOS # 0.1 K/uL (0.0-0.7); EOS % 1.7 % (0.0-4.0); LYMPH # 1.8 K/uL (1.0-4.3); LYMPH % 21.5 % (20.0-40.0); MEAN CELL VOLUME 88.2 fL (80.0-94.0); MEAN CORPUSCULAR HEMOGLOBIN 29.7 pg (27.0-31.0); MEAN CORPUSCULAR HGB CONC 33.7 g/dL (33.0-37.0); MEAN PLATELET VOLUME 7.3 fL (7.2-11.7); MONO # 0.8 K/uL (0.0-0.8); MONO % 9.1 % (0.0-10.0); NEUT # 5.7 K/uL (1.8-7.0); NEUT % 66.8 % (50.0-75.0); NRBC % 0.1 % (0.0-2.0); RBC 4.36 Mil/uL (4.40-5.90); RED CELL DISTRIBUTION WIDTH 13.1 % (11.5-14.5); WHITE BLOOD COUNT 8.6 K/uL (4.8-10.8)
[2017-10-10] MEDS ORDERED: Sodium Chloride 0.9% 1,000 ML ONE (19:38)
[2017-10-10 19:48] LABS: INR 1.2; PROTHROMBIN TIME 12.9 SECONDS (9.7-12.2)
[2017-10-10 19:49] LABS: ALBUMIN 4.5 g/dL (3.5-5.0); ALT/SGPT 29 U/L (21-72); AST/SGOT 27 U/L (17-59); BLOOD UREA NITROGEN 17 mg/dL (9-20); GFR AFRICAN-AMERICAN > 60; GFR NON-AFRICAN AMERICAN > 60
[2017-10-10] MEDS ORDERED: Vancomycin 1 gm/NS 200 ml 1 GM/200 ML BAG IVPB ONE (20:00)
[2017-10-10 20:07] LABS: VENOUS BLOOD GAS BASE EXCESS 1.5 mmol/L (0.0-2.0); VENOUS BLOOD GAS PCO2 46 mmHg (40-60); VENOUS BLOOD GAS PO2 37 mm/Hg (30-55); VENOUS BLOOD PH 7.38 (7.32-7.43)
--- NOTE | 2017-10-10 21:02 | CP.PCM.CON ---
History of Present Illness - History of Present Illness History of Present Illness: Podiatry Consult Note for Dr. Hernandes 72M [facility] dementia, cerebral palsy seen in ED accompanied by his son for posterior left leg wound. Patient was recently discharged from the hospital with a PICC line for IV Vancomycin and Cefepime but never followed up and pulled out his PICC line. Patient states that he is having pain in the back of his leg but has not noticed any redness, malodor or drainage. He is AAO x 3 and NAD at time of visit. Denies any other pedal complaints at this time. Denies any recent N/V/F/C/CP/SOB/D/posterior calf pain when squeezed Meds: See MAR All: NKDA PSH: Hip replacement, leg wound debridement FHx: Unremarkable SHx: Denies tobacco, alcohol or illicit drug use Review of Systems - Review of Systems All systems: reviewed and no additional remarkable complaints except Review of Systems: as per HPI Past Patient History - Infectious Disease Hx of Infectious Diseases: None - Past Social History Smoking Status: Never Smoked - CARDIAC Hx Hypercholesterolemia: Yes (denies) Hx Hypertension: Yes (denies) - NEUROLOGICAL Hx Dementia: Yes - MUSCULOSKELETAL/RHEUMATOLOGICAL Hx Arthritis: Yes Hx Fractures: Yes (left hip) - PSYCHIATRIC Hx Substance Use: No - SURGICAL HISTORY Hx Joint Replacement: Yes (hip sx uses walker) - ANESTHESIA Hx Anesthesia: Yes Hx Anesthesia Reactions: No Hx Malignant Hyperthermia: No Meds Home Medications: Home Medication List Medication Instructions Recorded Confirmed Type Amoxicillin/Clavulanate [Augmentin 1 tab PO BID #20 tab 10/10/17 Rx 875 MG-125 MG] Allergies/Adverse Reactions: Allergies Allergy/AdvReac Type Severity Reaction Status Date / Time No Known Allergies Allergy Verified 10/10/17 18:19 - Medications Medications: Current Medications Sodium Chloride (Sodium Chloride 0.9%) 1,000 mls @ 100 mls/hr IV .[facility] Last Admin: 10/10/17 20:01 Dose: 100 mls/hr Vancomycin/Sodium Chloride (Vancomycin 1 Gm/Ns 200 Ml) 1 gm in 200 mls @ 133.333 mls/hr IVPB ONCE ONE PRN Reason: Protocol Stop: 10/10/17 21:29 Last Admin: 10/10/17 20:01 Dose: 133.333 mls/hr Physical Exam - Constitutional Appears: Well, Non-toxic, No Acute Distress - Head Exam Head Exam: ATRAUMATIC, NORMOCEPHALIC - Extremities Exam Additional comments: LLE focused exam: VASC: DP pedal pulse graded 2/4, PT pulse graded 1/4. Non-pitting edema noted to distal 1/3 of lower leg. CFT to all digits was <3 seconds. Skin temperature warm to warm from proximal to distal WNL NEURO: Epicritic and protective sensation grossly intact b/l DERM: Left posterior leg partial thickness ulceration noted along course of Achilles tendon. Ulcer measures 6.6 x 3 cm which appears mainly fibronecrotic but stable. No raised margins no undermining not tunnelling noted. no Mal-odor noted a this time. No active purulence or active drainage noted. no erythema, Nails are elongated, yellowed, and thickened. MSK: mild tenderness on palpation of the wound, Pedal muscle strength graded as 5/5 to right side and 4/5 to left side on inversion and eversion resistance. Stiff and limited ankle joint range of motion to dorsiflexion and plantar flexion. - Neurological Exam Neurological exam: Alert, Oriented x3 - Psychiatric Exam Psychiatric exam: Normal Affect, Normal Mood Results - Vital Signs Recent Vital Signs: Last Vital Signs Temp 98.7 F 10/10/17 18:20 Pulse 71 10/10/17 18:20 Resp 16 10/10/17 18:20 BP 113/72 10/10/17 18:20 Pulse Ox 100 10/10/17 20:50 - Labs Result Diagrams: 10/10/17 19:34 10/10/17 19:34 Labs: Laboratory Results - last 24 hr 10/10/17 10/10/17 10/10/17 19:34 19:34 19:34 WBC 8.6 RBC 4.36 L Hgb 13.0 D Hct 38.5 MCV 88.2 MCH 29.7 MCHC 33.7 RDW 13.1 Plt Count 409 H D MPV 7.3 Neut % (Auto) 66.8 Lymph % (Auto) 21.5 [place] % (Auto) 9.1 Eos % (Auto) 1.7 Baso % (Auto) 0.9 Neut # (Auto) 5.7 Lymph # (Auto) 1.8 [place] # (Auto) 0.8 Eos # (Auto) 0.1 Baso # (Auto) 0.1 PT 12.9 H INR 1.2 APTT 28 pO2 VBG pH VBG pCO2 VBG HCO3 VBG Total CO2 VBG O2 Sat (Calc) VBG Base Excess VBG Potassium Glucose Lactate Sodium 146 Potassium 4.2 Chloride 104 Carbon Dioxide 27 Anion Gap 18 BUN 17 Creatinine 1.1 Est GFR ( Amer) > 60 Est GFR (Non-Af Amer) > 60 Random Glucose 105 Calcium 10.0 Magnesium 2.3 Total Bilirubin 0.6 AST 27 ALT 29 Alkaline Phosphatase 121 Total Protein 8.8 H Albumin 4.5 Globulin 4.3 H Albumin/Globulin Ratio 1.0 Venous Blood Potassium 10/10/17 20:03 WBC RBC Hgb Hct MCV MCH MCHC RDW Plt Count MPV Neut % (Auto) Lymph % (Auto) [place] % (Auto) Eos % (Auto) Baso % (Auto) Neut # (Auto) Lymph # (Auto) [place] # (Auto) Eos # (Auto) Baso # (Auto) PT INR APTT pO2 37 VBG pH 7.38 VBG pCO2 46 VBG HCO3 25.3 VBG Total CO2 28.6 H VBG O2 Sat (Calc) 74.0 H VBG Base Excess 1.5 VBG Potassium 4.1 Glucose 98 Lactate 1.0 Sodium 143.0 Potassium Chloride 106.0 Carbon Dioxide Anion Gap BUN Creatinine Est GFR ( Amer) Est GFR (Non-Af Amer) Random Glucose Calcium Magnesium Total Bilirubin AST ALT Alkaline Phosphatase Total Protein Albumin Globulin Albumin/Globulin Ratio Venous Blood Potassium 4.1 Assessment & Plan - Assessment and Plan (Free Text) Assessment: 72M seen for clinically uninfected posterior left leg wound Plan: Patient seen and evaluated Plan discussed with attending Dr. Hernandes Afebrile, absent leukocytosis Patient given one dose of Vancomycin 1 g in ED Wound cx from 09/27: Pseudomonas Aeruginosa, Corynebacterium Patient's wound cleansed with saline and dressed with DSD, CHERYL Rx Augmentin 875 mg BID x 10 days Patient instructed to keep dressings C/D/I Patient to f/u with Dr. Hernandes in the wound care center following discharge today - Date & Time Date: 10/10/17 Time: 21:10
[2017-10-10 21:29] VITALS: BP 118/76; PULSE 74; RESP 18; TEMP 98.4
== END 2017-10-10 21:28 | disposition home or self-care (01) ==
LOC: C.ER 17:43
DX: L97.929 Non-pressure chronic ulcer of unspecified part of left lower leg with unspecified severity (principal); F03.90 Unspecified dementia, unspecified severity, without behavioral disturbance, psychotic disturbance, mood disturbance, and anxiety; G80.9 Cerebral palsy, unspecified
CPT/HCPCS: 80053; 82803; 83735; 85025; 85610; 85730; 87040; 96365; 99283; J3370; J7030

== ENCOUNTER 2017-10-27 11:23 | Emergency (ER) | payer MEDICARE ==
[2017-10-27 11:23] VITALS: BMI 25.7
[2017-10-27] MEDS ORDERED: Piperacillin/Tazobact 3.375 gm 100 ML IV STA (13:14)
[2017-10-27] MEDS ORDERED: Vancomycin 1 GM 1 GM/250 ML BAG IV STA (13:14)
[2017-10-27 13:24] LABS: BASO % 0.5 % (0.0-2.0); EOS # 0.1 K/uL (0.0-0.7); EOS % 0.6 % (0.0-4.0); HEMOGLOBIN 12.3 g/dL (12.0-18.0); LYMPH # 1.7 K/uL (1.0-4.3); LYMPH % 19.6 % (20.0-40.0); MEAN CELL VOLUME 87.6 fL (80.0-94.0); MEAN CORPUSCULAR HEMOGLOBIN 30.1 pg (27.0-31.0); MEAN CORPUSCULAR HGB CONC 34.3 g/dL (33.0-37.0); MEAN PLATELET VOLUME 7.3 fL (7.2-11.7); MONO # 0.6 K/uL (0.0-0.8); MONO % 7.2 % (0.0-10.0); NEUT # 6.3 K/uL (1.8-7.0); NEUT % 72.1 % (50.0-75.0); RBC 4.08 Mil/uL (4.40-5.90); WHITE BLOOD COUNT 8.7 K/uL (4.8-10.8)
[2017-10-27 13:31] LABS: INR 1.2; PROTHROMBIN TIME 12.7 SECONDS (9.7-12.2)
[2017-10-27 13:44] LABS: ALB/GLOB RATIO 1.3 (1.0-2.1); ALBUMIN 4.6 g/dL (3.5-5.0); ALT/SGPT 33 U/L (21-72); AST/SGOT 32 U/L (17-59); BLOOD UREA NITROGEN 15 mg/dL (9-20); CALCIUM 10.1 mg/dl (8.6-10.4); GFR AFRICAN-AMERICAN > 60; GFR NON-AFRICAN AMERICAN > 60
[2017-10-27 13:52] LABS: B-TYPE NATRIURETIC PEPTIDE 135 pg/mL (0-900)
--- NOTE | 2017-10-27 13:58 | RAD ---
Date of service: 10/27/2017 PROCEDURE: CHEST RADIOGRAPH, 1 VIEW HISTORY: Shortness of breath COMPARISON: 09/29/2017. FINDINGS: LUNGS: The lungs are well inflated and clear. PLEURA: No pneumothorax or pleural fluid seen. CARDIOVASCULAR: Normal. OSSEOUS STRUCTURES: No significant abnormalities. VISUALIZED UPPER ABDOMEN: Normal. OTHER FINDINGS: None. IMPRESSION: No active pulmonary disease.
--- NOTE | 2017-10-27 14:11 | RAD ---
Date of service: 10/27/2017 PROCEDURE: Radiographs of the left tibia and fibula. HISTORY: ulcer/wound posterior/lower tib/fib COMPARISON: None available. TECHNIQUE: Frontal and lateral views obtained. FINDINGS: BONES: No evidence of acute osteomyelitis. JOINT SPACES: Unremarkable. OTHER FINDINGS: Soft tissue swelling at and above the ankle. IMPRESSION: Soft tissue swelling without acute articular or osseous abnormality. Concordant results with the preliminary interpretation rendered by the emergency department physician procedure.
[2017-10-27] MEDS ORDERED: Piperacillin/Tazobact 3.375 gm 100 ML IVPB ONE (14:36)
--- NOTE | 2017-10-27 14:40 | C.PDOC ---
History Of Present Illness 72yo male, with history of dementia, comes to ER complainig of oozing and discharge from a wound on his posterior left lower extremity, present for an unknown time. Patient has had multiple hospital evaluation for same complaints. At present, a full HPI and ROS is limited as patient is a poor historian. Time Seen by Provider: 10/27/17 12:31 Chief Complaint (Nursing): Abnormal Skin Integrity History Per: Patient History/Exam Limitations: clinical condition Onset/Duration Of Symptoms: Unknown Current Symptoms Are (Timing): Still Present Location Of Injury: Left: Leg, Posterior: Leg Additional History Per: Patient Past Medical History Reviewed: Historical Data, Nursing Documentation, Vital Signs Vital Signs: Last Vital Signs Temp 98 F 10/27/17 15:25 Pulse 76 10/27/17 15:25 Resp 18 10/27/17 15:25 BP 126/73 10/27/17 15:25 Pulse Ox 100 10/27/17 18:32 - Medical History PMH: Arthritis, Dementia, Fractures (left hip), HTN (denies), Hypercholesterolemia (denies) Surgical History: No Surg Hx - [facility] Procedures EXCISION OF L FOOT SUBCU/FASCIA, OPEN APPROACH (09/27/17) INSERTION OF INFUSION DEV INTO SUP VENA CAVA, PERC APPROACH (09/27/17) Family History: States: Unknown Family Hx - Social History Hx Tobacco Use: No Hx Alcohol Use: Yes Hx Substance Use: No - Immunization History Hx Tetanus Toxoid Vaccination: Yes Hx Influenza Vaccination: Yes Hx Pneumococcal Vaccination: Yes Review Of Systems Except As Marked, All Systems Reviewed And Found Negative. Constitutional: Negative for: Fever, Chills Skin: Positive for: Other (open wound posterior left lower extremity) Neurological: Negative for: Weakness, Numbness Physical Exam - Physical Exam Appears: Non-toxic, No Acute Distress Skin: Warm, Dry Head: Normacephalic Eye(s): bilateral: Normal Inspection Neck: Supple Chest: Symmetrical Cardiovascular: Rhythm Regular Respiratory: Normal Breath Sounds Extremity: Normal ROM, No Tenderness, No Calf Tenderness, No Deformity, Other ( 7x4cm wound to posterior left lower extremity. green/black/brown in color. no foul smell, no discharge noted. no surrounding erythema noted) Pulses: Left Dorsalis Pedis: Normal, Right Dorsalis Pedis: Normal Neurological/Psych: Normal Motor, Normal Sensation Gait: Steady ED Course And Treatment - Laboratory Results Result Diagrams: 10/27/17 13:15 10/27/17 13:15 O2 Sat by Pulse Oximetry: 100 (RA) Pulse Ox Interpretation: Normal - Other Rad XR left tib/fib X-Ray: Interpreted by Me, Viewed By Me Interpretation: Negative Medical Decision Making Medical Decision Making: Impression: cellulitis Discussed with medical or surgical instrument maker [id number] Discussed with podiatry resident 1330 CXR - negative Disposition Doctor Will See Patient In The: Office Counseled Patient/Family Regarding: Studies Performed, Diagnosis - Disposition Referrals: [facility] [Outside] [facility] [Outside] [facility] [Outside] Cecilia Savage DPM [Staff Provider] - Disposition: HOME/ ROUTINE Condition: GOOD Additional Instructions: Follow-up in Dr. Savage's office ([facility]) here @ [facility]- on Monday (3 days) between 12-3PM No appointment necessary keep wound covered and clean. Instructions: Wound Care Forms: [facility] [employer] [facility] (Greek) - Clinical Impression Clinical Impression: Chronic wound of extremity - Scribe Statement The provider has reviewed the documentation as recorded by the Shayne Herndon Provider Attestation: All medical record entries made by the Shayne were at my direction and personally dictated by me. I have reviewed the chart and agree that the record accurately reflects my personal performance of the history, physical exam, medical decision making, and the department course for this patient. I have also personally directed, reviewed, and agree with the discharge instructions and disposition.
--- NOTE | 2017-10-27 14:54 | C.PDOC ---
Time Seen by Provider: 10/27/17 12:31 Chief Complaint (Nursing): Abnormal Skin Integrity Past Medical History Vital Signs: Last Vital Signs Temp 99.1 F 10/27/17 11:39 Pulse 98 H 10/27/17 11:39 Resp 17 10/27/17 11:39 BP Pulse Ox 100 10/27/17 11:39 - Medical History PMH: Arthritis, Dementia, Fractures (left hip), HTN (denies), Hypercholesterolemia (denies) - [facility] Procedures EXCISION OF L FOOT SUBCU/FASCIA, OPEN APPROACH (09/27/17) INSERTION OF INFUSION DEV INTO SUP VENA CAVA, PERC APPROACH (09/27/17) Family History: States: Unknown Family Hx - Social History Hx Tobacco Use: No Hx Alcohol Use: Yes Hx Substance Use: No - Immunization History Hx Tetanus Toxoid Vaccination: Yes Hx Influenza Vaccination: Yes Hx Pneumococcal Vaccination: Yes ED Course And Treatment - Laboratory Results Result Diagrams: 10/27/17 13:15 10/27/17 13:15 Lab Interpretation: Normal ECG: Interpreted By Ct ECG Rhythm: Sinus Rhythm ECG Interpretation: Normal Rate From EC O2 Sat by Pulse Oximetry: 100 Pulse Ox Interpretation: Normal - Radiology CXR: Interpreted by Ct CXR Interpretation: Yes: No Acute Disease Reevaluation Time: 14:54 Reassessment Condition: Improved - Physician Consult Information Outcome Of Conversation: 1440: d/w Podiatry Jim and Hospitalists. wound, though impressive, is chronic and seems IMPROVED from baseline per Podiatry. normal WBC's and no apparent acute infection. plan to f/u in Pod's Clinic 3 days for further debridment. Medical Decision Making Medical Decision Making: chronic wound involving L achilles tendon ok for d/c and opt f/u. Disposition Doctor Will See Patient In The: Office Counseled Patient/Family Regarding: Studies Performed, Diagnosis - Disposition Disposition: HOME/ ROUTINE Disposition Time: 14:58 Condition: GOOD - Clinical Impression Clinical Impression: Chronic wound of extremity
[2017-10-27] MEDS ORDERED: Vancomycin 1 gm/NS 200 ml 1 GM/200 ML BAG IVPB ONE (15:00)
[2017-10-27 15:26] VITALS: BP 126/73; PULSE 76; RESP 18; TEMP 98
--- NOTE | 2017-10-27 15:32 | CP.PCM.CON ---
History of Present Illness - History of Present Illness History of Present Illness: Podiatry Consult Note for Dr. Hernandes 72 year old male patient with PMHx of dementia, cerebral palsy was evaluated in ED for posterior left leg wound. Patient was recently discharged from the hospital with a PICC line for IV Vancomycin and Cefepime but never followed up and pulled out his PICC line according to the previous notes. Patient reports that he did complete the IV abx that were given to him. Patient also reports that he was seen in the ED at the end of last month. Reports that he was given oral abx and he completed the course. Patient states that he is having pain in the back of his leg today but has not noticed any redness, malodor or drainage. Reports that he does not change the dressing daily. Patient also denies of following up with Dr. Hernandes. He is AAOx3 and NAD at time of visit. Denies any other pedal complaints at this time. Denies any recent N/V/F/C/CP/SOB/D/ posterior calf pain when squeezed PMHx: dementia, cerebral palsy PSH: Hip replacement, leg wound debridement Allergies: NKDA SHx: Denies tobacco, alcohol or illicit drug use Review of Systems - Constitutional Constitutional: As Per HPI Past Patient History - Infectious Disease Hx of Infectious Diseases: None - Past Social History Smoking Status: Never Smoked - CARDIAC Hx Hypercholesterolemia: Yes (denies) Hx Hypertension: Yes (denies) - NEUROLOGICAL Hx Dementia: Yes - MUSCULOSKELETAL/RHEUMATOLOGICAL Hx Arthritis: Yes Hx Fractures: Yes (left hip) - PSYCHIATRIC Hx Substance Use: No - SURGICAL HISTORY Hx Joint Replacement: Yes (hip sx uses walker) - ANESTHESIA Hx Anesthesia: Yes Hx Anesthesia Reactions: No Hx Malignant Hyperthermia: No Meds Allergies/Adverse Reactions: Allergies Allergy/AdvReac Type Severity Reaction Status Date / Time No Known Allergies Allergy Verified 10/27/17 11:38 Physical Exam - Constitutional Appears: Well, Non-toxic, No Acute Distress - Extremities Exam Additional comments: LLE focused exam: VASC: DP pedal pulse graded 2/4, PT pulse graded 1/4. Cap refill time to all digits was <3 seconds. very minimal non-pitting edema noted to distal 1/3 of lower leg. Skin temperature warm to cool from proximal to distal WNL DERM: Left posterior leg partial thickness ulceration noted along course of Achilles tendon. Ulcer measures 6.6 x 3 cm which appears mainly fibronecrotic but stable. No raised margins no undermining not tunnelling noted. no Mal-odor noted a this time. No active purulence or active drainage noted. no erythema, no tunneling, no tracking, no clinical suspicion of active infection NEURO: Epicritic and protective sensation grossly intact b/l MSK: mild tenderness on palpation of the wound, Pedal muscle strength graded as 5/5 to right side and 4/5 to left side on inversion and eversion resistance. Stiff and limited ankle joint range of motion to dorsiflexion and plantar flexion. - Neurological Exam Neurological exam: Alert, Oriented x3 - Psychiatric Exam Psychiatric exam: Normal Affect, Normal Mood Results - Vital Signs Recent Vital Signs: Last Vital Signs Temp 98 F 10/27/17 15:25 Pulse 76 10/27/17 15:25 Resp 18 10/27/17 15:25 BP 126/73 10/27/17 15:25 Pulse Ox 98 10/27/17 15:25 - Labs Result Diagrams: 10/27/17 13:15 10/27/17 13:15 Labs: Laboratory Results - last 24 hr 10/27/17 10/27/17 10/27/17 13:15 13:15 13:15 WBC 8.7 RBC 4.08 L Hgb 12.3 Hct 35.7 MCV 87.6 MCH 30.1 MCHC 34.3 RDW 13.0 Plt Count 330 MPV 7.3 Neut % (Auto) 72.1 Lymph % (Auto) 19.6 L [place] % (Auto) 7.2 Eos % (Auto) 0.6 Baso % (Auto) 0.5 Neut # (Auto) 6.3 Lymph # (Auto) 1.7 [place] # (Auto) 0.6 Eos # (Auto) 0.1 Baso # (Auto) 0.0 PT 12.7 H INR 1.2 APTT 31 Sodium 144 Potassium 5.0 Chloride 103 Carbon Dioxide 30 Anion Gap 17 BUN 15 Creatinine 1.0 Est GFR ( Amer) > 60 Est GFR (Non-Af Amer) > 60 Random Glucose 116 H Calcium 10.1 Total Bilirubin 0.8 AST 32 ALT 33 Alkaline Phosphatase 114 Troponin I < 0.0120 NT-Pro-B Natriuret Pep 135 Total Protein 8.2 Albumin 4.6 Globulin 3.6 Albumin/Globulin Ratio 1.3 Assessment & Plan - Assessment and Plan (Free Text) Assessment: 72 year old male seen for clinically uninfected posterior left leg wound Plan: Patient seen and evaluated Plan discussed with attending Dr. Hernandes Afebrile, absent leukocytosis Tib-fib x-rays ordered/reviewed - no signs of soft tissue emphysema, no acute signs of OM Patient given one dose of Vancomycin and zosyn Wound cx from 09/27: Pseudomonas Aeruginosa, Corynebacterium Patient's wound cleansed with saline and dressed with wet to dry DSD Wound appears clinically non-infected at this time - Patient is s/p OR wound debridement (09/29/17) Patient instructed to keep dressings C/D/I Patient to f/u with Dr. Hernandes or Dr. Savage in the podiatry clinic on Monday Patient educated to return to the ED if symptoms worsen Patient demonstrated verbal understanding of the plan Thank you for the podiatry consult and allowing to take part in patient care - Date & Time Date: 10/27/17 Time: 15:39
[2017-10-27 18:33] VITALS: O2SAT 100
--- NOTE | 2017-10-31 07:04 | CARD ---
APPROVED REPORT Date of service: 10/27/2017 EKG Measurement Heart [id number] <Conclusion> Normal sinus rhythm with sinus arrhythmia Normal ECG
== END 2017-10-27 15:26 | disposition home or self-care (01) ==
LOC: C.ER 11:23
DX: S81.802A Unspecified open wound, left lower leg, initial encounter (principal); X58.XXXA Exposure to other specified factors, initial encounter
CPT/HCPCS: 71045; 73590; 80053; 83880; 84484; 85025; 85610; 85730; 93005; 96374; 96375; 99284; J2543; J3370

== ENCOUNTER 2018-09-03 13:14 | Inpatient (IN) | payer MEDICARE | END 2018-09-07 17:25 | LOC: C.6T 09-05 22:43 → C.ER 13:14 → C.9E 16:21 → C.6T 20:24 ==